=== PATIENT | male | born 1935 | race Caucasian/White ===

== ENCOUNTER 2020-01-19 08:25 | Inpatient (IN) | payer OTHER ==
[2020-01-19] MEDS ORDERED: ALBUTEROL SO4 2.5/IPRATROPIUM 0.5 INH SOL 3 ML VIAL.NEB. NEB ONE ×3 (08:26→13:51)
[2020-01-19] MEDS ORDERED: methylPREDNISolone NA SUCC 125 MG/2 ML VIAL IVPUSH ONE (08:27)
[2020-01-19] MEDS ORDERED: FUROSEMIDE 40 MG/4 ML INJECTABLE VIAL IVPUSH ONE (08:27)
[2020-01-19 09:06] LABS: BASO % 0.3 % (0-2.0); EOS % 0.3 % (0-4.5); HEMATOCRIT 33.1 % (35.4-49); HEMOGLOBIN 10.8 GM/dL (11.7-16.9); LYMPH % 10.1 % (8-40); MCHC 32.5 g/dl (32.0-35.9); MEAN CELL VOLUME 98.4 fl (80-96); MEAN PLT VOLUME 9.5 fl (7.5-11.1); MONO % 30.2 % (3.8-10.2); NEUT % 59.1 % (42.8-82.8); PLATELET COUNT 187 K/MM3 (134-434); RBC 3.37 M/mm3 (4.00-5.60); RDW 15.2 % (11.9-15.9); WHITE BLOOD COUNT 7.9 K/mm3 (4.0-10.0)
[2020-01-19 09:34] LABS: ALBUMIN 3.2 g/dl (3.4-5.0); BILIRUBIN,TOTAL 0.5 mg/dL (0.2-1); BLOOD UREA NITROGEN 27.8 mg/dL (7-18); CALCIUM 8.9 mg/dL (8.5-10.1); CREATININE 1.5 mg/dL (0.55-1.3); N-TERMINAL BNP 4168.7 pg/ml (5-450); POTASSIUM 3.9 mmol/L (3.5-5.1); TOT PROT 6.5 g/dl (6.4-8.2)
[2020-01-19 09:40] LABS: INR 1.49 (0.83-1.09); PROTHROMBIN TIME (PATIENT) 17.7 SEC (9.7-13.0)
[2020-01-19] MEDS ORDERED: ALBUTEROL SO4 0.083% IH SOL 2.5 MG/3 ML VIAL.NEB. NEB ONE ×2 (09:45→09:46)
[2020-01-19] MEDS ORDERED: DIGOXIN 0.5 MG/2 ML AMPUL IVPUSH ONE ×2 (09:46→17:05)
[2020-01-19] MEDS ORDERED: DIGOXIN 0.5 MG/2 ML AMPUL ONE ×2 (09:49→18:10)
--- NOTE | 2020-01-19 09:57 | PDOC ---
Documentation entered by Dagmar Salgado SCRIBE, acting as scribe for Dagoberto Edmond MD. Dagoberto Edmond MD: This documentation has been prepared by the Damian oliveros Adrianna, SCRIBE, under my direction and personally reviewed by me in its entirety. I confirm that the documentation accurately reflects all work, treatment, procedures, and medical decision making performed by me. History of Present Illness - General Stated Complaint: SOB - History of Present Illness Initial Comments: The patient is an 84 year old male, with a significant PMH of COPD, CHF, prior asbestos exposure, who presents to the ED for evaluation of shortness of breath for 3 days. Patient complains of progressively worsening shortness of breath. He endorses dyspnea on exertion, noting if he walks ~15 feet he hyperventilates and feels like he cannot catch his breath. Daughter at bedside notes the patient has had progressively worsening conversational dyspnea, stating he become short of breath after speaking 3-4 sentences. He endorses an associated cough productive of phlegm. Denies any chest pain at this time. Allergies: NKA, NKDA Social History: Former smoker (quit >40 years ago). No toxic habits PCP: Dr. Lackey Past History - Past Medical History Allergies/Adverse Reactions: Allergies Allergy/AdvReac Type Severity Reaction Status Date / Time No Known Allergies Allergy Verified 01/19/20 08:28 Home Medications: Ambulatory Orders Allopurinol 300 mg PO DAILY 01/19/20 Amlodipine Bes/Olmesartan Med [Amlodipine-Olmesartan 5-40 mg] 1 each PO Dabigatran Etexilate Mesylate [Pradaxa -] 75 mg PO BID 01/19/20 Glipizide [Glipizide Xl] 5 mg PO DAILY 01/19/20 Metoprolol Succinate [Toprol Xl] 100 mg PO DAILY 01/19/20 Montelukast Sodium [Singulair] 10 mg PO HS 01/19/20 Pravastatin Sodium [Pravachol (Nf)] 40 mg PO HS 01/19/20 Triamterene/Hydrochlorothiazid [Triamterene-Hctz 37.5-25 mg Cp] 1 each PO DAILY 01/19/20 Review of Systems - Review of Systems Comments:: CONSTITUTIONAL: No fever, no chills, no fatigue EYES: No visual changes ENT: No ear pain, no sore throat CARDIOVASCULAR: No chest pain, no palpitations RESPIRATORY: +Cough productive of phlegm. +SOB. +Dyspnea on exertion. + Conversational dyspnea. GI: No abdominal pain, no nausea, no vomiting, no constipation, no diarrhea GENITOURINARY: No dysuria, no frequency, no hematuria MUSKULOSKELETAL: No back pain, no joint pain, no myalgias SKIN: No rash NEURO: No headache *Physical Exam - Vital Signs Last Vital Signs Temp Pulse Resp BP Pulse Ox 97.3 F L 127 H 26 H 155/68 97 01/19/20 08:28 01/19/20 08:28 01/19/20 08:28 01/19/20 08:28 01/19/20 08:28 - Physical Exam CONSTITUTIONAL: Awake, alert, and oriented. Well-appearing; well-nourished; in mild respiratory distress. HEAD: Normocephalic; atraumatic EYES: PERRL; EOM intact ENMT: External appears normal; normal oropharynx NECK: Supple; non-tender; no cervical lymphadenopathy CARD: +Irregularly irregular. +Tachycardic. no murmurs, rubs, or gallops RESP: +Tachypneic. +Dyspneic. +Mild respiratory distress. +Diffuse rhonchi in all lung walsh. Normal chest excursion with respiration; ABD: Soft, non-distended; non-tender; no palpable organomegaly, no palpable hernias EXT: +2+ pitting edema of the bilateral lower extremities with anterior excoriations and mild erythema. Normal ROM in all four extremities; non-tender to palpation; distal pulses intact SKIN: Warm, dry, no rash NEURO: No focal neurological deficiencies. Heart Score/ECG Review - ECG Impressions Comment:: EKG performed at 8:26 on 01/19/2020 demonstrates rate of 108bpm, Atrial fibrillation with rapid ventricular response with premature ventricular or aberrantly conducted complexes. Anterolateral infarct, age undetermined. ED Treatment Course - LABORATORY CBC & Chemistry Diagram: 01/19/20 08:30 01/19/20 08:30 - ADDITIONAL ORDERS Additional order review: Laboratory Results 01/19/20 01/19/20 01/19/20 08:30 08:30 08:30 PT with INR 17.70 H INR 1.49 H Sodium 147 H Potassium 3.9 Chloride 112 H Carbon Dioxide 29 Anion Gap 6 L BUN 27.8 H Creatinine 1.5 H Est GFR (CKD-EPI)AfAm 48.85 Est GFR (CKD-EPI)NonAf 42.14 Random Glucose 190 H Calcium 8.9 Total Bilirubin 0.5 AST 17 ALT 22 Alkaline Phosphatase 73 Creatine Kinase 73 Troponin I 0.02 B-Natriuretic Peptide 4168.7 H Total Protein 6.5 Albumin 3.2 L Digoxin < 0.3 L 01/19/20 08:30 RBC 3.37 L MCV 98.4 H MCHC 32.5 RDW 15.2 MPV 9.5 Neutrophils % 59.1 Lymphocytes % 10.1 Monocytes % 30.2 H Eosinophils % 0.3 Basophils % 0.3 - RADIOLOGY Radiology Studies Ordered: Category Date Time Status CHEST X-RAY PORTABLE* [RAD] Stat Radiology 01/19/20 08:27 Taken Radiograph Interpretation: EXAM#: TYPE/EXAM: RESULT: [id number] RAD/CHEST X-RAY PORTABLE* Shortness of breath. Impression. Left lung base obscured by the soft tissues of the chest cardiac silhouette versus left pleural effusion, compressive atelectasis. Widened superior mediastinum, trachea narrowing, clinically correlate for adenopathy, enlarged thyroid gland. No evidence of vascular congestive changes. Reported By: Rosales Malave MD 01/19/20 10:02 EXAM#: TYPE/EXAM: RESULT: [id number] CT/CHEST CT WITHOUT CONTRAST Shortness of breath IMPRESSION: Bibasal consolidation/pneumonia with [id number] bilateral pleural effusion. There are also mild atelectatic changes versus infiltrates in lingular segment of the left upper lobe and in the right middle lobe. Follow-up is needed. Mild cardiomegaly with dense calcification of the coronary arteries. 1.3 cm soft tissue peritoneal based nodular density seen along the right posterior-lateral abdominal wall/and right flank, of uncertain clinical significance or etiology. Correlate clinically for further evaluation. Significantly enlarged thyroid gland, in particular the left thyroid lobe with retrosternal extension displacing the trachea towards the right with significant narrowing at the thoracic inlet. There are also multiple hypodensities with small calcific densities, in particular in the left thyroid lobe with the largest measuring 3.7 cm suggestive of nodules. Reported By: Lara Carpio MD 01/19/20 13:06 - Medications Given in the ED: ED Medications Discontinued Medications Generic Name Dose Route Start Last Admin Trade Name Chris PRN Reason Stop Dose Admin Albuterol Sulfate 1 amp 01/19/20 09:46 01/19/20 09:55 Ventolin 0.083% Nebulizer Soln - NEB 01/19/20 09:47 1 amp ONCE ONE Administration Albuterol/Ipratropium 3 amp 01/19/20 08:26 01/19/20 08:45 Duoneb - NEB 01/19/20 08:27 3 amp ONCE ONE Administration Digoxin 0.5 mg 01/19/20 09:46 01/19/20 09:55 Lanoxin Injection - IVPUSH 01/19/20 09:47 0.5 mg ONCE ONE Administration Furosemide 40 mg 01/19/20 08:27 01/19/20 08:45 Lasix Injection - IVPUSH 01/19/20 08:28 40 mg ONCE ONE Administration Methylprednisolone Sodium Succinate 125 mg 01/19/20 08:27 01/19/20 08:45 Solu-Medrol - IVPUSH 01/19/20 08:28 125 mg ONCE ONE Administration Medical Decision Making - Medical Decision Making 01/19/20 09:56 Patient is an 84-year-old male with multiple comorbidities who presents to the ER with worsening shortness of breath, cough productive of white sputum, significant lower extremity edema and hypoxemia. Differential diagnosis includes COPD versus CHF exacerbation versus combination of both versus viral infection versus asbestosis. Will administer Combivent therapy, parenteral steroids, will obtain chest x-ray. Will also administer IV Lasix. EKG reveals A. fib with RVR without evidence of underlying ischemia. Will obtain CBC/CMP/ cardiac profile/BNP. Will reassess. Likely admission. 01/19/20 14:24 Patient reassessed. Patient is mildly improved clinically. oxygen saturation is noted to be 94 to 96% on 4 L via nasal cannula. Patient's respiratory rate varies from 18-24. Heart rate varies from 1 10-[address] of chest reveals bilateral pleural effusions, bilateral infiltrates, enlarged thyroid and a pulmonary nodule. Blood cultures obtained and IV antibiotics administered for community-acquired pneumonia. Patient is noted to be influenza negative. We will continue with albuterol/Atrovent nebulizer treatments. Will admit to telemetry for further evaluation and treatment. Discharge - Discharge Information Problems reviewed: Yes Clinical Impression/Diagnosis: Pleural effusion, Acute exacerbation of chronic obstructive pulmonary disease ( COPD) Pneumonia Qualifiers: Pneumonia type: due to unspecified organism Laterality: bilateral Lung location : unspecified part of lung Qualified Code(s): J18.9 - Pneumonia, unspecified organism Acute CHF Qualifiers: Heart failure type: unspecified Qualified Code(s): I50.9 - Heart failure, unspecified Condition: Fair - Admission Yes - Follow up/Referral Referrals: Will Lackey MD [Primary Care Provider] - - Patient Discharge Instructions - Post Discharge Activity
[2020-01-19 10:32] LABS: ANISOCYTOSIS 0; MACROCYTOSIS 0; PLATELET ESTIMATE NORMAL
--- NOTE | 2020-01-19 10:50 | EKG ---
Test Reason : Blood Pressure : / mmHG Vent. Rate : 108 BPM Atrial Rate : 110 BPM P-R Int : 000 ms QRS Dur : 092 ms QT Int : 358 ms P-R-T Axes : 000 009 106 degrees QTc Int : 479 ms ATRIAL FIBRILLATION WITH RAPID VENTRICULAR RESPONSE WITH PREMATURE VENTRICULAR OR ABERRANTLY CONDUCTED COMPLEXES ANTEROLATERAL INFARCT , AGE UNDETERMINED ABNORMAL ECG WHEN COMPARED WITH ECG OF 19-JAN-2006 09:18, SIGNIFICANT CHANGES HAVE OCCURRED Confirmed by Jared Anderson ([id number]) on 01/19/2020 10:50:12 AM Referred By: Confirmed By:Jared Anderson
[2020-01-19 11:20] LABS: ARTERIAL BLD GAS O2 SATURATION 94.1 % (95-98); ARTERIAL BLOOD GAS BASE EXCESS 2.6 meq/l (-2-2); ARTERIAL BLOOD GAS PCO2 36.6 mmHg (35-45); ARTERIAL BLOOD GAS pH 7.46 (7.35-7.45)
[2020-01-19 11:23] LABS: ARTERIAL BLOOD GAS PO2 83.8 mmHg (80-100)
[2020-01-19 11:24] LABS: ALLENS TEST POSITIVE; CARBOXYHEMOGLOBIN < 0.5 % (0-2)
[2020-01-19] MEDS ORDERED: AZITHROMYCIN IVPB 500 MG in DEXTROSE 5%-WATER - 250 ML IVPB ONE (13:15)
[2020-01-19] MEDS ORDERED: CEFTRIAXONE 1,000 MG in DEXTROSE 5%-WATER - 50 ML IVPB ONE (13:15)
[2020-01-19] MEDS ORDERED: CEFTRIAXONE 1 GM/50 ML BAG ONE (13:25)
[2020-01-19] MEDS ORDERED: AZITHROMYCIN IVPB 500 MG/250 ML BAG IVPB ONE (14:56)
--- NOTE | 2020-01-19 17:11 | ECHO ---
Name: NEVAEH HOLMAN Exam:Adult Echocardiogram Study Date: 01/19/2020 03:37 PM Age: 84 yrs Reason For Study: Evaluate EF Height: 66 in Weight: 200 lb BSA: 2.0 m2 MMode/2D Measurements & Calculations IVSd: 1.1 cm Ao root diam: 3.3 cm LVIDd: 5.5 cm LA dimension: 4.7 cm LVIDs: 4.0 cm ACS: 1.8 cm LVPWd: 1.0 cm EDV(Teich): 145.7 ml LVOT diam: 2.0 cm ESV(Teich): 70.3 ml LVLd ap4: 7.7 cm SV(MOD-sp4): 55.0 ml EDV(MOD-sp4): 111.0 ml LVLs ap4: 6.6 cm ESV(MOD-sp4): 56.0 ml LAV (MOD-bp): 107.0 ml TAPSE: 1.9 cm RV S Miguelito: 14.6 cm/sec Doppler Measurements & Calculations MVA(VTI): 1.8 cm2 MV E max miguelito: 132.0 cm/sec MV V2 max: 139.0 cm/sec MV dec time: 0.23 sec MV max P.7 mmHg MV V2 mean: 75.2 cm/sec MV mean P.8 mmHg MV V2 VTI: 34.4 cm MV P1/2t max miguelito: 133.3 cm/sec Ao V2 max: 157.0 cm/sec MV P1/2t: 65.3 msec Ao max P.9 mmHg Ao V2 mean: 109.0 cm/sec MVA(P1/2t): 3.4 cm2 Ao mean P.3 mmHg MV dec slope: 598.0 cm/sec2 Ao V2 VTI: 25.3 cm DENIS(I,D): 2.5 cm2 DENIS(V,D): 2.1 cm2 LV V1 max P.5 mmHg MR max miguelito: 540.8 cm/sec LV V1 mean P.4 mmHg MR max P.0 mmHg LV V1 max: 105.5 cm/sec LV V1 mean: 72.3 cm/sec LV V1 VTI: 20.6 cm SV(LVOT): 63.0 ml TR max miguelito: 293.3 cm/sec TR max P.8 mmHg PA V2 max: 103.2 cm/sec Med Peak E' Miguelito: 10.1 cm/sec PA max P.3 mmHg Med E/e': 13.0 Lat Peak E' Miguelito: 14.6 cm/sec Lat E/e': 9.0 Pulm Sys Miguelito: 81.0 cm/sec Pulm Ellis Miguelito: 46.3 cm/sec Pulm S/D: 1.7 Tech Comments TDS due to body habitus. Left Ventricle The left ventricular size, thickness and function are normal. Ejection Fraction = 55-60%. The transmi tral spectral Doppler flow pattern is suggestive of impaired LV relaxation. Right Ventricle The right ventricle is normal in size and function. Atria The left atrium is moderately dilated. The right atrium is mildly dilated. Mitral Valve There is moderate to severe mitral annular calcification. Calcified mitral apparatus. There is mild m itral regurgitation. Tricuspid Valve The tricuspid valve is not well visualized. No tricuspid regurgitation. There was insufficient TR det ected to calculate RV systolic pressure. Aortic Valve There is moderate to severe aortic sclerosis.;. No hemodynamically significant valvular aortic stenos is. Trace to mild aortic regurgitation. Pulmonic Valve The pulmonic valve is not well visualized. Great Vessels The aortic root is not well visualized. Pericardium/Pleura There is no pericardial effusion. Interpretation Summary The left ventricular size, thickness and function are normal. Ejection Fraction = 55-60%. The right ventricle is normal in size and function. The left atrium is moderately dilated. The right atrium is mildly dilated. There is moderate to severe aortic sclerosis. No hemodynamically significant valvular aortic stenosis. Trace to mild aortic regurgitation. There is moderate to severe mitral annular calcification. Calcified mitral apparatus. There is mild m itral regurgitation. MD Lizett Soni 01/19/2020 05:10 PM
[2020-01-19] MEDS: INSULIN SLIDING SCALE (NOVOLOG) 1 VIAL SQ SCH (18:05)
[2020-01-19] MEDS: MONTELUKAST NA 10 MG TABLET PO SCH (22:47)
[2020-01-19] MEDS: ATORVASTATIN CA 10 MG TABLET (FP) PO SCH (22:47)
[2020-01-19] MEDS: DABIGATRAN ETEXILATE MESYLATE 75 MG CAPSULE PO SCH (22:54)
[2020-01-20 07:40] LABS: BASO % 0.1 % (0-2.0); HEMATOCRIT 31.9 % (35.4-49); HEMOGLOBIN 10.4 GM/dL (11.7-16.9); LYMPH % 6.4 % (8-40); MCHC 32.7 g/dl (32.0-35.9); MEAN CELL VOLUME 97.8 fl (80-96); MEAN PLT VOLUME 9.5 fl (7.5-11.1); MONO % 6.8 % (3.8-10.2); NEUT % 86.7 % (42.8-82.8); PLATELET COUNT 175 K/MM3 (134-434); RBC 3.26 M/mm3 (4.00-5.60); RDW 15.3 % (11.9-15.9); WHITE BLOOD COUNT 7.8 K/mm3 (4.0-10.0)
[2020-01-20 07:50] LABS: ALBUMIN 3.3 g/dl (3.4-5.0); BILIRUBIN,TOTAL 0.4 mg/dL (0.2-1); BLOOD UREA NITROGEN 39.5 mg/dL (7-18); CALCIUM 8.6 mg/dL (8.5-10.1); CREATININE 1.6 mg/dL (0.55-1.3); POTASSIUM 4.4 mmol/L (3.5-5.1); TOT PROT 6.4 g/dl (6.4-8.2)
[2020-01-20] MEDS ORDERED: CEFTRIAXONE 1 GM in DEXTROSE 5%-WATER - 50 ML IVPB SCH ×2 (08:00→08:47)
--- NOTE | 2020-01-20 10:30 | HP ---
Admitting History and Physical - Primary Care Physician PCP: Will Lackey - Admission Chief Complaint: cough,sob History of Present Illness: - History of Present Illness Initial Comments: The patient is an 84 year old male, with a significant PMH of COPD, CHF, prior asbestos exposure, who presents to the ED for evaluation of shortness of breath for 3 days. Patient complains of progressively worsening shortness of breath. He endorses dyspnea on exertion, noting if he walks ~15 feet he hyperventilates and feels like he cannot catch his breath. Daughter at bedside notes the patient has had progressively worsening conversational dyspnea, stating he become short of breath after speaking 3-4 sentences. He endorses an associated cough productive of phlegm. Denies any chest pain at this time. Allergies: NKA, NKDA Social History: Former smoker (quit >40 years ago). No toxic habits PCP: Dr. Lackey Pt examined by me in Telemetry Does not use Oxygen at home Has been feeling progressive SOB with non productive cough for about a month now and had seen Dr Lackey early in Dec -- he gave him antibiotics for a week-- felt slightly better. He had flew to [place], [place] 2 weeks ago and came back Jan 09. He has recurrence of symptoms prior to leaving to [place]-- did not seek medical attention there- when symptoms of SOB on exertion with worsening cough occurred he came to hospital here. Denies sick contacts, denies fever or chills no orthopnea or PND no chest pain History Source: Patient Limitations to Obtaining History: No Limitations - Past Medical History Cardiovascular: Yes: AFIB, CHF Pulmonary: Yes: COPD, Other (asbestos exposure) - Advance Directives Advance Directives: Yes: DNR - Smoking History Smoking history: Former smoker Have you smoked in the past 12 months: No If you are a former smoker, when did you quit?: 42 YRS AGO - Alcohol/Substance Use Hx Alcohol Use: No Home Medications - Allergies Allergies/Adverse Reactions: Allergies Allergy/AdvReac Type Severity Reaction Status Date / Time No Known Allergies Allergy Verified 01/19/20 08:28 - Home Medications Home Medications: Ambulatory Orders Allopurinol 300 mg PO DAILY 01/19/20 Amlodipine Bes/Olmesartan Med [Amlodipine-Olmesartan 5-40 mg] 1 each PO 01/19/20 Dabigatran Etexilate Mesylate [Pradaxa -] 75 mg PO BID 01/19/20 Glipizide [Glipizide Xl] 5 mg PO DAILY 01/19/20 Metoprolol Succinate [Toprol Xl] 100 mg PO DAILY 01/19/20 Montelukast Sodium [Singulair] 10 mg PO HS 01/19/20 Pravastatin Sodium [Pravachol (Nf)] 40 mg PO HS 01/19/20 Triamterene/Hydrochlorothiazid [Triamterene-Hctz 37.5-25 mg Cp] 1 each PO DAILY 01/19/20 Review of Systems - Review of Systems Constitutional: denies: Chills, Fever, Weakness Respiratory: reports: Cough, Exercise Intolerance, SOB, SOB on Exertion Physical Examination Vital Signs: Vital Signs Temperature 97.8 F 01/20/20 09:00 Pulse Rate 101 H 01/20/20 09:00 Respiratory Rate 20 01/20/20 09:00 Blood Pressure 121/66 01/20/20 09:00 O2 Sat by Pulse Oximetry (%) 96 01/20/20 09:00 Labs: CBC, BMP 01/20/20 06:00 01/20/20 06:00 Imaging - Results Chest X-ray: Report Reviewed (Radiograph Interpretation: EXAM#: TYPE/EXAM: RESULT: [id number] RAD/CHEST X-RAY PORTABLE* Shortness of breath. Impression. Left lung base obscured by the soft tissues of the chest cardiac silhouette v ersus left pleural effusion, compressive atelectasis. Widened superior mediastinum, trachea narrowing, clinically correlate for adenopathy, enlarged thyroid gland. No evidence of vascular congestive changes. Reported By: Rosales Malave MD 01/19/20 10:02), Image Reviewed Cat Scan: Report Reviewed ( EXAM#: TYPE/EXAM: RESULT: [id number] CT/CHEST CT WITHOUT CONTRAST Shortness of breath IMPRESSION: Bibasal consolidation/pneumonia with hyzkp-hy-hcdehefi bilateral pleural effusion. There are also mild atelectatic changes versus infiltrates in lingular segment of the left upper lobe and in the right middle lobe. Follow-up is needed. Mild cardiomegaly with dense calcification of the coronary arteries. 1.3 cm soft tissue peritoneal based nodular density seen along the right posterior-lateral abdominal wall/and right flank, of uncertain clinical significance or etiology. Correlate clinically for further evaluation. Significantly enlarged thyroid gland, in particular the left thyroid lobe with retrosternal extension displacing the trachea towards the right with significant narrowing at the thoracic inlet. There are also multiple hypodensities with small calcific dens ities, in particular in the left thyroid lobe with the largest measuring 3.7 cm suggestive of nodules. Reported By: Lara Carpio MD 01/19/20 13:06) EKG: Image Reviewed (Afib RVR) Problem List - Problems (1) Rapid atrial fibrillation Code(s): I48.91 - UNSPECIFIED ATRIAL FIBRILLATION (2) Acute CHF Code(s): I50.9 - HEART FAILURE, UNSPECIFIED Qualifiers: Heart failure type: unspecified Qualified Code(s): I50.9 - Heart failure, unspecified (3) Acute exacerbation of chronic obstructive pulmonary disease (COPD) Code(s): J44.1 - CHRONIC OBSTRUCTIVE PULMONARY DISEASE W (ACUTE) EXACERBATION (4) Pleural effusion Code(s): J90 - PLEURAL EFFUSION, NOT ELSEWHERE CLASSIFIED (5) Pneumonia Code(s): J18.9 - PNEUMONIA, UNSPECIFIED ORGANISM Qualifiers: Pneumonia type: due to unspecified organism Laterality: bilateral Lung location: unspecified part of lung Qualified Code(s): J18.9 - Pneumonia, unspecified organism (6) Acute kidney failure Code(s): N17.9 - ACUTE KIDNEY FAILURE, UNSPECIFIED Assessment/Plan PLAN COPD exacerbation Pneumonia -- check urine antigens -- iv antibiotics -- will give one dose of Zosyn -- Influenza screen negative -- CT chest noted --ID eval -- nebs, O2 CHF decompensation -- diastolic -- Echo reviewed -- Cardiology eval noted --on iv lasix -- monitor daily weight and I and O -- monitor renal function Rapid Afib -- on Pradaxa -- rate is controlled now --was given iv digoxin in ER -- will continue with Toprol for now as rates better controlled
[2020-01-20] MEDS ORDERED: DEXTROSE 5%-WATER - 50 ML IVPB ONE (10:55)
[2020-01-20] MEDS ORDERED: cefTRIAXone SODIUM 1 GM VIAL ONE (10:55)
[2020-01-20] MEDS ORDERED: PT OWN MED DRAWER 7, Y5N ONE ×2 (11:01→21:22)
[2020-01-20] MEDS ORDERED: DEXTROSE 5%-WATER 100 ML IVPB ONE ×2 (11:08→17:29)
[2020-01-20] MEDS ORDERED: PIPERACILLIN/TAZOBACTAM 4.5 GM VIAL IVPB ONE (11:08)
--- NOTE | 2020-01-20 11:12 | CON.CARD ---
Cardiology Consult (text) - Consultation Consultation Note: cc: sob hpi: 84 m hx copd, htn, hld, afib, dchf here with sob. Past few weeks with [place] and cough, worse past few days so came to er. No cp palps dizzy loc pnd le edema. Mild orthopnea present. Found to have bl pna. pmh: per hpi psh: per hpi social: ex tob fam: no premature cad, scd ros: per hpi, all others nl meds: Home Medications Medication Instructions Recorded Allopurinol 300 mg PO DAILY 01/19/20 Amlodipine Bes/Olmesartan Med 1 each PO 01/19/20 [Amlodipine-Olmesartan 5-40 mg] Dabigatran Etexilate Mesylate 75 mg PO BID 01/19/20 [Pradaxa -] Glipizide [Glipizide Xl] 5 mg PO DAILY 01/19/20 Metoprolol Succinate [Toprol Xl] 100 mg PO DAILY 01/19/20 Montelukast Sodium [Singulair] 10 mg PO HS 01/19/20 Pravastatin Sodium [Pravachol (Nf)] 40 mg PO HS 01/19/20 Triamterene/Hydrochlorothiazid 1 each PO DAILY 01/19/20 [Triamterene-Hctz 37.5-25 mg Cp] Vital Signs Period Temp Pulse Resp BP Sys/Ellis Pulse Ox Last 24 Hr 97.6 F-97.8 F 89-133 18-24 121-164/65-87 2-97 nad no jvd irreg s1s2 no mrg bl wheeze, dec bs bases, nl eff aao3 no le e/c/c abd nt nd pos bs no jaundice diaphoresis pos dp pt no carotid bruits Laboratory Last Values WBC 7.8 K/mm3 (4.0-10.0) 01/20/20 06:00 RBC 3.26 M/mm3 (4.00-5.60) L 01/20/20 06:00 Hgb 10.4 GM/dL (11.7-16.9) L 01/20/20 06:00 Hct 31.9 % (35.4-49) L 01/20/20 06:00 MCV 97.8 fl (80-96) H 01/20/20 06:00 MCH 32.0 pg (25.7-33.7) 01/20/20 06:00 MCHC 32.7 g/dl (32.0-35.9) 01/20/20 06:00 RDW 15.3 % (11.9-15.9) 01/20/20 06:00 Plt Count 175 K/MM3 (134-434) 01/20/20 06:00 MPV 9.5 fl (7.5-11.1) 01/20/20 06:00 Absolute Neuts (auto) 6.8 K/mm3 (1.5-8.0) 01/20/20 06:00 Neutrophils % 86.7 % (42.8-82.8) H D 01/20/20 06:00 Neutrophils % (Manual) 64.6 % (42.8-82.8) 01/19/20 08:30 Band Neutrophils % 0.0 % 01/19/20 08:30 Lymphocytes % 6.4 % (8-40) L D 01/20/20 06:00 Lymphocytes % (Manual) 6.1 % (8-40) L 01/19/20 08:30 Monocytes % 6.8 % (3.8-10.2) 01/20/20 06:00 Monocytes % (Manual) 26 % (3.8-10.2) H 01/19/20 08:30 Eosinophils % 0.0 % (0-4.5) D 01/20/20 06:00 Eosinophils % (Manual) 0.0 % (0-4.5) 01/19/20 08:30 Basophils % 0.1 % (0-2.0) 01/20/20 06:00 Basophils % (Manual) 0.0 % (0-2.0) 01/19/20 08:30 Myelocytes % (Man) 0 % (0-2) 01/19/20 08:30 Promyelocytes % (Man) 0 % (0-2) 01/19/20 08:30 Blast Cells % (Manual) 0 % (0-0) 01/19/20 08:30 Nucleated RBC % 0 % (0-0) 01/20/20 06:00 Metamyelocytes 0 % (0-2) 01/19/20 08:30 Hypochromia 0 01/19/20 08:30 Platelet Estimate Normal 01/19/20 08:30 Polychromasia 0 01/19/20 08:30 Poikilocytosis 0 01/19/20 08:30 Anisocytosis 0 01/19/20 08:30 Microcytosis 0 01/19/20 08:30 Macrocytosis 0 01/19/20 08:30 PT with INR 17.70 SEC (9.7-13.0) H 01/19/20 08:30 INR 1.49 (0.83-1.09) H 01/19/20 08:30 Anticoagulation Therapy No Result Required. 01/19/20 11:10 Puncture Site Left radial 01/19/20 11:10 ABG pH 7.46 (7.35-7.45) H 01/19/20 11:10 ABG pCO2 at Pt Temp 36.6 mmHg (35-45) 01/19/20 11:10 ABG pO2 at Pt Temp 83.8 mmHg (80-100) 01/19/20 11:10 ABG HCO3 25.9 mmol/L (22-27) 01/19/20 11:10 ABG O2 Sat (Measured) 94.1 % (95-98) L 01/19/20 11:10 ABG O2 Content No Result Required. 01/19/20 11:10 ABG Base Excess 2.6 meq/l (-2-2) H 01/19/20 11:10 Giuliano Test Positive 01/19/20 11:10 Carboxyhemoglobin < 0.5 % (0-2) 01/19/20 11:10 Methemoglobin < 1.0 % (0-2) 01/19/20 11:10 O2 Delivery Device No Result Required. 01/19/20 11:10 Oxygen Flow Rate Yes 01/19/20 11:10 Vent Mode No Result Required. 01/19/20 11:10 Vent Rate No Result Required. 01/19/20 11:10 Mechanical Rate No Result Required. 01/19/20 11:10 Pressure Support Vent No Result Required. 01/19/20 11:10 Sodium 145 mmol/L (136-145) 01/20/20 06:00 Potassium 4.4 mmol/L (3.5-5.1) 01/20/20 06:00 Chloride 110 mmol/L (98-107) H 01/20/20 06:00 Carbon Dioxide 31 mmol/L (21-32) 01/20/20 06:00 Anion Gap 4 MMOL/L (8-16) L 01/20/20 06:00 BUN 39.5 mg/dL (7-18) H 01/20/20 06:00 Creatinine 1.6 mg/dL (0.55-1.3) H 01/20/20 06:00 Est GFR (CKD-EPI)AfAm 45.18 01/20/20 06:00 Est GFR (CKD-EPI)NonAf 38.98 01/20/20 06:00 POC Glucometer 119 UNITS (80-120) 01/20/20 05:57 Random Glucose 109 mg/dL (74-106) H 01/20/20 06:00 Calcium 8.6 mg/dL (8.5-10.1) 01/20/20 06:00 Total Bilirubin 0.4 mg/dL (0.2-1) 01/20/20 06:00 AST 16 U/L (15-37) 01/20/20 06:00 ALT 21 U/L (13-61) 01/20/20 06:00 Alkaline Phosphatase 70 U/L (45-117) 01/20/20 06:00 Creatine Kinase 84 U/L (26-308) 01/20/20 06:00 Troponin I 0.02 ng/ml (0.00-0.05) 01/20/20 06:00 B-Natriuretic Peptide 4168.7 pg/ml (5-450) H 01/19/20 08:30 Total Protein 6.4 g/dl (6.4-8.2) 01/20/20 06:00 Albumin 3.3 g/dl (3.4-5.0) L 01/20/20 06:00 TSH 0.04 uIU/ml (0.358-3.74) L 01/20/20 06:00 Digoxin < 0.3 ng/ml (0.8-2.0) L 01/19/20 08:30 Influenza A (Rapid) Negative (Negative) 01/19/20 09:50 Influenza B (Rapid) Negative (Negative) 01/19/20 09:50 echo 01/2020: nl lv/rv, ivonne, mild mr mibi 09/2017: no ischemia ecg: afib, 108, nl qtc, no ischemic changes ct chest: bibasilar pna and bl effs tele: afib, 90s a/p: 84 m hx copd, htn, hld, afib, dchf here with sob. sob, pna, acute/chronic diastolic chf: -cont abx for pna -has mild pleural effs, likely related to pna, agree with iv lasix for now, monitor daily chem7 -no signs acs htn: -cont home meds hld: -cont statin afib: -cont ac -cont toprol for rate control. mild rvr at times likely due to pna, monitor on tele for now
[2020-01-20] MEDS ORDERED: PIPERACILLIN/TAZOB 4.5 GM 4.5 GM in DEXTROSE 5%-WATER 100 ML IVPB ONE (11:15)
[2020-01-20] MEDS: FUROSEMIDE 40 MG/4 ML INJECTABLE VIAL IVPUSH SCH (11:18)
[2020-01-20] MEDS: DABIGATRAN ETEXILATE MESYLATE 75 MG CAPSULE PO SCH ×2 (11:18→21:25)
[2020-01-20] MEDS: INSULIN SLIDING SCALE (NOVOLOG) 1 VIAL SQ SCH ×2 (11:18→17:11)
[2020-01-20] MEDS: ALLOPURINOL 300 MG TABLET (FP) PO SCH (11:18)
[2020-01-20] MEDS: AZITHROMYCIN IVPB 500 MG/250 ML BAG IVPB SCH (12:42)
--- NOTE | 2020-01-20 17:13 | PN ---
Progress Note (short form) - Note Progress Note: ID CONSULT DICTATED COMMUNITY ACQUIRED V. ATYPICAL PNEUMONIA EXACERBATION COPD AWAIT C/S EMPIRIC CEFTRIAXONE/ ZITHROMAX
[2020-01-20] MEDS: CEFTRIAXONE 2 GM in DEXTROSE 5%-WATER 100 ML IVPB SCH (17:42)
[2020-01-20] MEDS: ALBUTEROL SO4 2.5/IPRATROPIUM 0.5 INH SOL 3 ML VIAL.NEB. NEB PRN ×2 (17:44→23:45)
[2020-01-20] MEDS: MONTELUKAST NA 10 MG TABLET PO SCH (21:25)
[2020-01-20] MEDS: ATORVASTATIN CA 10 MG TABLET (FP) PO SCH (21:25)
--- NOTE | 2020-01-21 00:24 | CONS ---
DATE OF CONSULTATION: DATE OF DICTATION: 01/20/2020 INFECTIOUS DISEASE CONSULTATION HISTORY OF PRESENT ILLNESS: The patient is an 84-year-old male, history of COPD, evaluated for pneumonia. He was admitted to the hospital on January 19, 2020, with worsening shortness of breath on exertion and cough productive of brownish sputum. A CAT scan of the chest was performed that showed bibasilar infiltrates and bilateral pleural effusions. He was empirically treated with Zithromax and ceftriaxone. The patient lives at home alone. He denies any ill contacts. No recent hospitalizations, no recent travel. He is a former smoker. He stopped 40 years ago. Prior to that, had smoked for approximately 20 years. He reports being up to date with respect to influenza and pneumococcal vaccine. Patient does not use oxygen at home. He denies any chest pains, fever, or chills. PAST MEDICAL HISTORY: Positive for COPD, congestive heart failure, atrial fibrillation. ALLERGIES: No known allergies. MEDICATION: Medications at the present time include Zithromax, ceftriaxone, albuterol, Pradaxa, Lipitor, digoxin, Toprol, Lasix, glipizide, Solu-Medrol. SOCIAL HISTORY: As per HPI. LABORATORY DATA: White count 7.8, hematocrit 31.9, platelets 175, creatinine 1.6. Flu swab negative. Cultures are pending. SYSTEMS REVIEW: Neurologic: No loss of consciousness, seizure activity, focal weakness. Cardiac: Negative for chest pain or palpitations. Respiratory: As per HPI. Gastrointestinal: Negative vomiting or diarrhea. Genitourinary: Negative for urinary tract infection. PHYSICAL EXAMINATION: General: On physical examination he is awake and alert. He is seated in bed. He is short of breath at rest on nasal cannula O2. Vital signs: Temperature 97.9, blood pressure 145/82, pulse 85 regular, respirations 22 per minute. HEENT: Sclerae anicteric. Cardiovascular: Heart sounds S1, S2. Lungs: Scattered rhonchi bilaterally and mild bilateral wheezing. Abdomen: Obese. Soft, nontender. Extremities: Positive for lower extremity edema. There is a hyperpigmented lesion present on the right pinna as well as a superficial ulceration present on the left buttock approximately 1 cm in diameter. Does not appear to be infected. IMPRESSION: 1. Community-acquired versus atypical right-sided pneumonia. 2. Acute exacerbation chronic obstructive pulmonary disease. 3. Congestive heart failure. 4. Azotemia. Await cultures, await sputum culture, urine legionella and pneumococcal antigens. Empiric antibiotic coverage with Zithromax and ceftriaxone. Inhaled bronchodilators, intravenous corticosteroids, diuretic therapy. Will follow. Thank you for the kind referral. KIP ZIMMERMAN M.D. [id number]
[2020-01-21] MEDS: ALBUTEROL SO4 2.5/IPRATROPIUM 0.5 INH SOL 3 ML VIAL.NEB. NEB PRN (06:06)
[2020-01-21] MEDS: INSULIN SLIDING SCALE (NOVOLOG) 1 VIAL SQ SCH ×3 (06:29→16:33)
[2020-01-21] MEDS: glipiZIDE-XL 5 MG TAB.ER.24 PO SCH (06:30)
[2020-01-21 08:29] LABS: BLOOD UREA NITROGEN 47.6 mg/dL (7-18); CALCIUM 8.4 mg/dL (8.5-10.1); CREATININE 1.6 mg/dL (0.55-1.3); POTASSIUM 4.2 mmol/L (3.5-5.1)
[2020-01-21] MEDS ORDERED: DEXTROSE 5%-WATER 100 ML IVPB ONE (09:29)
[2020-01-21] MEDS ORDERED: PT OWN MED DRAWER 7, Y5N ONE ×2 (09:29→21:32)
[2020-01-21] MEDS: CEFTRIAXONE 2 GM in DEXTROSE 5%-WATER 100 ML IVPB SCH (09:57)
[2020-01-21] MEDS: ALLOPURINOL 300 MG TABLET (FP) PO SCH (09:57)
[2020-01-21] MEDS: DABIGATRAN ETEXILATE MESYLATE 75 MG CAPSULE PO SCH ×2 (09:57→21:47)
[2020-01-21] MEDS: FUROSEMIDE 40 MG/4 ML INJECTABLE VIAL IVPUSH SCH (09:58)
--- NOTE | 2020-01-21 10:05 | PN ---
Progress Note, Physician Chief Complaint: no CP Stable cough No dizziness or palps History of Present Illness: pi: 84 m hx copd, htn, hld, afib, dchf here with sob. Past few weeks with [place] and cough, worse past few days so came to er. No cp palps dizzy loc pnd le edema. Mild orthopnea present. Found to have bl pna. TELE: AF, controlled, rare PVCs - Current Medication List Current Medications: Active Medications Albuterol/Ipratropium (Duoneb -) 1 amp NEB Q6H PRN PRN Reason: SHORTNESS OF BREATH Last Admin: 01/21/20 06:06 Dose: 1 amp Documented by: Allopurinol (Zyloprim -) 300 mg PO DAILY [facility] Last Admin: 01/21/20 09:57 Dose: 300 mg Documented by: Atorvastatin Calcium (Lipitor -) 10 mg PO HS [facility] Last Admin: 01/20/20 21:25 Dose: 10 mg Documented by: Dabigatran (Pradaxa -) 75 mg PO BID [facility] Last Admin: 01/21/20 09:57 Dose: 75 mg Documented by: Furosemide (Lasix Injection -) 40 mg IVPUSH DAILY [facility] Last Admin: 01/21/20 09:58 Dose: 40 mg Documented by: Glipizide (Glucotrol Xl -) 5 mg PO DAILY@0700 [facility] Last Admin: 01/21/20 06:30 Dose: Not Given Documented by: Azithromycin (Zithromax 500mg Ivpb (Pre-Docked)) 500 mg in 250 mls @ 250 mls/hr IVPB DAILY [facility] Last Admin: 01/20/20 12:42 Dose: 250 mls/hr Documented by: Ceftriaxone Sodium 2 gm/ (Dextrose) 100 mls @ 200 mls/hr IVPB DAILY [facility]; Protocol Last Admin: 01/21/20 09:57 Dose: 200 mls/hr Documented by: Insulin Aspart (Novolog Vial Sliding Scale -) 1 vial SQ TIDAC [facility]; Protocol Last Admin: 01/21/20 06:29 Dose: Not Given Documented by: Metoprolol Succinate (Toprol Xl -) 100 mg PO DAILY [facility] Last Admin: 01/21/20 09:57 Dose: 100 mg Documented by: Montelukast Sodium (Singulair -) 10 mg PO [facility] Last Admin: 01/20/20 21:25 Dose: 10 mg Documented by: - Objective Vital Signs: Vital Signs Temperature 97.4 F L 01/21/20 05:00 Pulse Rate 92 H 01/21/20 05:00 Respiratory Rate 20 01/21/20 05:00 Blood Pressure 141/70 01/21/20 05:00 O2 Sat by Pulse Oximetry (%) 96 01/20/20 21:00 Cardiovascular: Yes: Pulse Irregular Respiratory: Yes: Rhonchi, Other (decreased breath sounds bases) Gastrointestinal: Yes: Soft, Abdomen, Obese Edema: Yes Edema: LLE: 1+, RLE: 1+ Neurological: Yes: Alert, Oriented Labs: CBC, BMP 01/20/20 06:00 01/21/20 06:28 INR, PTT INR 1.49 (0.83-1.09) H 01/19/20 08:30 - ....Imaging EKG: Image Reviewed Assessment/Plan echo 01/2020: nl lv/rv, ivonne, mild mr mibi 09/2017: no ischemia ecg: afib, 108, nl qtc, no ischemic changes ct chest: bibasilar pna and bl effs tele: afib, 90s a/p: 84 m hx copd, htn, hld, afib, dchf here with sob. sob, pna, acute/chronic diastolic chf: -cont abx for pna -has mild pleural effs, likely related to pna, agree with iv lasix for now, monitor daily chem7 -no signs acs htn: -cont home meds hld: -cont statin afib: -cont ac, on Pradaxa -cont toprol for rate control.
--- NOTE | 2020-01-21 10:08 | PN ---
Progress Note, Physician History of Present Illness: pt seen/ examined chart is reviewed all consults noted/ appreciated Also d/w Dr. Hoffman today Pt feels slightly better still sob denies cp afebrile - Current Medication List Current Medications: Active Medications Albuterol/Ipratropium (Duoneb -) 1 amp NEB Q6H PRN PRN Reason: SHORTNESS OF BREATH Last Admin: 01/21/20 06:06 Dose: 1 amp Documented by: Allopurinol (Zyloprim -) 300 mg PO DAILY [facility] Last Admin: 01/21/20 09:57 Dose: 300 mg Documented by: Atorvastatin Calcium (Lipitor -) 10 mg PO HS [facility] Last Admin: 01/20/20 21:25 Dose: 10 mg Documented by: Dabigatran (Pradaxa -) 75 mg PO BID [facility] Last Admin: 01/21/20 09:57 Dose: 75 mg Documented by: Furosemide (Lasix Injection -) 40 mg IVPUSH DAILY [facility] Last Admin: 01/21/20 09:58 Dose: 40 mg Documented by: Glipizide (Glucotrol Xl -) 5 mg PO DAILY@0700 [facility] Last Admin: 01/21/20 06:30 Dose: Not Given Documented by: Azithromycin (Zithromax 500mg Ivpb (Pre-Docked)) 500 mg in 250 mls @ 250 mls/hr IVPB DAILY [facility] Last Admin: 01/20/20 12:42 Dose: 250 mls/hr Documented by: Ceftriaxone Sodium 2 gm/ (Dextrose) 100 mls @ 200 mls/hr IVPB DAILY [facility]; Protocol Last Admin: 01/21/20 09:57 Dose: 200 mls/hr Documented by: Insulin Aspart (Novolog Vial Sliding Scale -) 1 vial SQ TIDAC [facility]; Protocol Last Admin: 01/21/20 06:29 Dose: Not Given Documented by: Metoprolol Succinate (Toprol Xl -) 100 mg PO DAILY [facility] Last Admin: 01/21/20 09:57 Dose: 100 mg Documented by: Montelukast Sodium (Singulair -) 10 mg PO HS [facility] Last Admin: 01/20/20 21:25 Dose: 10 mg Documented by: - Objective Vital Signs: Vital Signs Temperature 97.4 F L 01/21/20 05:00 Pulse Rate 92 H 01/21/20 05:00 Respiratory Rate 20 01/21/20 05:00 Blood Pressure 141/70 01/21/20 05:00 O2 Sat by Pulse Oximetry (%) 96 01/20/20 21:00 Constitutional: Yes: No Distress Eyes: Yes: Conjunctiva Clear Neck: Yes: Supple Cardiovascular: Yes: Pulse Irregular. No: Regular Rate and Rhythm Respiratory: Yes: Diminished, Rhonchi Gastrointestinal: Yes: Soft, Abdomen, Obese Edema: LLE: 1+, RLE: 1+ Neurological: Yes: Alert Labs: CBC, BMP 01/20/20 06:00 01/21/20 06:28 INR, PTT INR 1.49 (0.83-1.09) H 01/19/20 08:30 Problem List - Problems (1) Acute CHF Code(s): I50.9 - HEART FAILURE, UNSPECIFIED Qualifiers: Heart failure type: unspecified Qualified Code(s): I50.9 - Heart failure, unspecified (2) Acute exacerbation of chronic obstructive pulmonary disease (COPD) Code(s): J44.1 - CHRONIC OBSTRUCTIVE PULMONARY DISEASE W (ACUTE) EXACERBATION (3) Pneumonia Code(s): J18.9 - PNEUMONIA, UNSPECIFIED ORGANISM Qualifiers: Pneumonia type: due to unspecified organism Laterality: bilateral Lung location: unspecified part of lung Qualified Code(s): J18.9 - Pneumonia, unspecified organism (4) Rapid atrial fibrillation Code(s): I48.91 - UNSPECIFIED ATRIAL FIBRILLATION (5) Acute kidney failure Code(s): N17.9 - ACUTE KIDNEY FAILURE, UNSPECIFIED Assessment/Plan -- iv antibiotics -- -- Influenza screen negative -- CT chest noted --ID eval noted -- nebs, O2 CHF decompensation -- diastolic -- Echo reviewed -- Cardiology eval noted --on iv lasix -- monitor daily weight and I and O -- monitor renal function Rapid Afib -- on Pradaxa -- rate is controlled Will follow
[2020-01-21] MEDS: ALBUTEROL SO4 2.5/IPRATROPIUM 0.5 INH SOL 3 ML VIAL.NEB. NEB SCH ×3 (11:38→21:30)
[2020-01-21] MEDS: AZITHROMYCIN IVPB 500 MG/250 ML BAG IVPB SCH (13:00)
--- NOTE | 2020-01-21 13:21 | PN ---
Progress Note, Physician History of Present Illness: AWAKE, ALERT SEATED IN BED REPORTS BREATHING IMPROVED LESS COUGH NO C/O CHEST PAIN NO FEVER/ CHILLS - Current Medication List Current Medications: Active Medications Albuterol/Ipratropium (Duoneb -) [address] [facility] Last Admin: 01/21/20 11:38 Dose: 1 amp Documented by: Allopurinol (Zyloprim -) [address] [facility] Last Admin: 01/21/20 09:57 Dose: 300 mg Documented by: Atorvastatin Calcium (Lipitor -) [address] [facility] Last Admin: 01/20/20 21:25 Dose: 10 mg Documented by: Dabigatran (Pradaxa -) [address] [facility] Last Admin: 01/21/20 09:57 Dose: 75 mg Documented by: Furosemide (Lasix Injection -) [address] [facility] Last Admin: 01/21/20 09:58 Dose: 40 mg Documented by: Glipizide (Glucotrol Xl -) 5 mg PO DAILY@0700 [facility] Last Admin: 01/21/20 06:30 Dose: Not Given Documented by: Azithromycin (Zithromax 500mg Ivpb (Pre-Docked)) 500 mg in 250 mls @ 250 mls/hr IVPB DAILY [facility] Last Admin: 01/20/20 12:42 Dose: 250 mls/hr Documented by: Ceftriaxone Sodium 2 gm/ (Dextrose) 100 mls @ 200 mls/hr IVPB DAILY [facility]; Pro tocol Last Admin: 01/21/20 09:57 Dose: 200 mls/hr Documented by: Insulin Aspart (Novolog Vial Sliding Scale -) [address] [facility]; Protocol Last Admin: 01/21/20 06:29 Dose: Not Given Documented by: Metoprolol Succinate (Toprol Xl -) [address] [facility] Last Admin: 01/21/20 09:57 Dose: 100 mg Documented by: Montelukast Sodium (Singulair -) [address] [facility] Last Admin: 01/20/20 21:25 Dose: 10 mg Documented by: - Objective Vital Signs: Vital Signs Temperature 98.1 F 01/21/20 10:00 Pulse Rate 96 H 01/21/20 10:00 Respiratory Rate 20 01/21/20 10:00 Blood Pressure 120/64 01/21/20 10:00 O2 Sat by Pulse Oximetry (%) 96 01/20/20 21:00 Constitutional: Yes: No Distress Eyes: Yes: Conjunctiva Clear Cardiovascular: Yes: Regular Rate and Rhythm, S1, S2 Respiratory: Yes: Rhonchi Gastrointestinal: Yes: Normal Bowel Sounds, Soft, Abdomen, Obese. No: Tenderness Edema: Yes Labs: CBC, BMP 01/20/20 06:00 01/21/20 06:28 INR, PTT INR 1.49 (0.83-1.09) H 01/19/20 08:30 Assessment/Plan [id number] ACQUIRED PNEUMONIA ACUTE EXACERBATION COPD CHF AWAIT C/S CONTINUE CEFTRIAXONE/ ZITHROMAX
[2020-01-21] MEDS: MONTELUKAST NA 10 MG TABLET PO SCH (21:47)
[2020-01-21] MEDS: ATORVASTATIN CA 10 MG TABLET (FP) PO SCH (21:47)
[2020-01-22] MEDS: INSULIN SLIDING SCALE (NOVOLOG) 1 VIAL SQ SCH ×3 (06:41→17:45)
[2020-01-22] MEDS: glipiZIDE-XL 5 MG TAB.ER.24 PO SCH (06:41)
[2020-01-22] MEDS: ALBUTEROL SO4 2.5/IPRATROPIUM 0.5 INH SOL 3 ML VIAL.NEB. NEB SCH ×4 (07:57→20:00)
[2020-01-22] MEDS ORDERED: DEXTROSE 5%-WATER 100 ML IVPB ONE (09:01)
[2020-01-22] MEDS: CEFTRIAXONE 2 GM in DEXTROSE 5%-WATER 100 ML IVPB SCH (09:54)
[2020-01-22] MEDS: AZITHROMYCIN IVPB 500 MG/250 ML BAG IVPB SCH (09:55)
[2020-01-22] MEDS: FUROSEMIDE 40 MG/4 ML INJECTABLE VIAL IVPUSH SCH (09:56)
[2020-01-22] MEDS: ALLOPURINOL 300 MG TABLET (FP) PO SCH (09:56)
[2020-01-22] MEDS ORDERED: PT OWN MED DRAWER 7, Y5N ONE (09:57)
[2020-01-22] MEDS: DABIGATRAN ETEXILATE MESYLATE 75 MG CAPSULE PO SCH ×2 (09:59→21:19)
--- NOTE | 2020-01-22 11:37 | PN ---
Progress Note (short form) - Note Progress Note: daughter at bedside Pt states he feels better still wheezing when walking to bathroom-- denies sob Vital Signs - 24 hr 01/21/20 01/21/20 01/21/20 14:00 17:00 21:00 Temperature 98 F 97.3 F L 98.3 F Pulse Rate 101 H 95 H 91 H Respiratory 20 20 20 Rate Blood Pressure 97/53 L 129/73 130/62 O2 Sat by Pulse 94 L Oximetry (%) 01/22/20 01/22/20 01:00 05:00 Temperature 97.5 F L 97.8 F Pulse Rate 98 H 94 H Respiratory 20 19 Rate Blood Pressure 116/69 138/77 O2 Sat by Pulse Oximetry (%) Current Medications Generic Name Dose Route Start Last Admin Trade Name Freq PRN Reason Stop Dose Admin Albuterol/Ipratropium 1 amp 01/21/20 12:00 01/22/20 11:31 Duoneb - NEB 1 amp RQID PEEWEE Administration Allopurinol 300 mg 01/20/20 10:00 01/22/20 09:56 Zyloprim - PO 300 mg DAILY PEEWEE Administration Atorvastatin Calcium 10 mg 01/19/20 22:00 01/21/20 21:47 Lipitor - PO 10 mg HS PEEWEE Administration Dabigatran 75 mg 01/19/20 22:00 01/22/20 09:59 Pradaxa - PO 75 mg BID PEEWEE Administration Furosemide 40 mg 01/20/20 10:00 01/22/20 09:56 Lasix Injection - IVPUSH 40 mg DAILY PEEWEE Administration Glipizide 5 mg 01/20/20 07:00 01/22/20 06:41 Glucotrol Xl - PO 5 mg DAILY@0700 PEEWEE Administration Azithromycin 500 mg in 250 mls @ 250 mls/hr 01/20/20 10:00 01/22/20 09:55 Zithromax 500mg Ivpb (Pre-Docked) IVPB 250 mls/hr DAILY [facility]EE Administration Ceftriaxone Sodium 2 gm/ 100 mls @ 200 mls/hr 01/20/20 17:15 01/22/20 09:54 Dextrose IVPB 200 mls/hr DAILY PEEWEE Administration Protocol Insulin Aspart 1 vial 01/19/20 16:30 01/22/20 06:41 Novolog Vial Sliding Scale - SQ Not Given TIDAC PEEWEE Protocol Metoprolol Succinate 100 mg 01/20/20 10:00 01/22/20 09:56 Toprol Xl - PO 100 mg DAILY PEEWEE Administration Montelukast Sodium 10 mg 01/19/20 22:00 01/21/20 21:47 Singulair - PO 10 mg HS PEEWEE Administration Laboratory Results - last 24 hr 01/21/20 01/21/20 01/22/20 12:43 16:19 06:34 POC Glucometer 133 132 165 Microbiology 01/20/20 21:30 Sputum - Expectorated Gram Stain - Final 01/20/20 21:30 Sputum - Expectorated Sputum Culture - Preliminary NORMAL RESPIRATORY HERNANDEZ 01/19/20 13:36 Blood - Peripheral Venous Blood Culture - Preliminary NO GROWTH OBTAINED AFTER 48 HOURS, INCUBATION TO CONTINUE FOR 3 DAYS. 01/19/20 13:36 Blood - Peripheral Venous Blood Culture - Preliminary NO GROWTH OBTAINED AFTER 48 HOURS, INCUBATION TO CONTINUE FOR 3 DAYS. 01/20/20 12:45 Urine For Antigen Detection Legionella Antigen - Final 01/20/20 12:45 Urine For Antigen Detection Streptococcus pneumoniae Antigen (M - Final S1 S2 Irregular Lungs ronchi decreased Abd-soft, obese, NT trace edema A/p Assessment/Plan Pneumonia -- iv antibiotics -- -- Influenza screen negative -- CT chest noted --ID eval noted -- nebs, O2 -- urine antigens negative -- sputum-- normal -- pulmonary eval ---> ?start steroids CHF decompensation -- diastolic -- Echo reviewed -- Cardiology eval noted --on iv lasix -- monitor daily weight and I and O -- monitor renal function Rapid Afib -- on Pradaxa -- rate is controlled Problem List - Problems (1) Rapid atrial fibrillation Code(s): I48.91 - UNSPECIFIED ATRIAL FIBRILLATION (2) Acute CHF Code(s): I50.9 - HEART FAILURE, UNSPECIFIED Qualifiers: Heart failure type: unspecified Qualified Code(s): I50.9 - Heart failure, unspecified (3) Acute exacerbation of chronic obstructive pulmonary disease (COPD) Code(s): J44.1 - CHRONIC OBSTRUCTIVE PULMONARY DISEASE W (ACUTE) EXACERBATION (4) Pleural effusion Code(s): J90 - PLEURAL EFFUSION, NOT ELSEWHERE CLASSIFIED (5) Pneumonia Code(s): J18.9 - PNEUMONIA, UNSPECIFIED ORGANISM Qualifiers: Pneumonia type: due to unspecified organism Laterality: bilateral Lung location: unspecified part of lung Qualified Code(s): J18.9 - Pneumonia, unspecified organism (6) Acute kidney failure Code(s): N17.9 - ACUTE KIDNEY FAILURE, UNSPECIFIED
[2020-01-22] MEDS ORDERED: ALBUTEROL SO4 2.5/IPRATROPIUM 0.5 INH SOL 3 ML VIAL.NEB. NEB PRN (11:40)
--- NOTE | 2020-01-22 11:43 | PN ---
Progress Note (short form) - Note Progress Note: s: stable dyspnea. no chest pain, palps, dizziness Current Medications Albuterol/Ipratropium (Duoneb -) 1 amp NEB RQID [facility] Last Admin: 01/22/20 11:31 Dose: 1 amp Documented by: Allopurinol (Zyloprim -) 300 mg PO DAILY [facility] Last Admin: 01/22/20 09:56 Dose: 300 mg Documented by: Atorvastatin Calcium (Lipitor -) 10 mg PO [facility] Last Admin: 01/21/20 21:47 Dose: 10 mg Documented by: Dabigatran (Pradaxa -) 75 mg PO BID [facility] Last Admin: 01/22/20 09:59 Dose: 75 mg Documented by: Furosemide (Lasix Injection -) 40 mg IVPUSH DAILY [facility] Last Admin: 01/22/20 09:56 Dose: 40 mg Documented by: Glipizide (Glucotrol Xl -) 5 mg PO DAILY@0700 [facility] Last Admin: 01/22/20 06:41 Dose: 5 mg Documented by: Azithromycin (Zithromax 500mg Ivpb (Pre-Docked)) 500 mg in 250 mls @ 250 mls/hr IVPB DAILY [facility] Last Admin: 01/22/20 09:55 Dose: 250 mls/hr Documented by: Ceftriaxone Sodium 2 gm/ (Dextrose) 100 mls @ 200 mls/hr IVPB DAILY [facility]; Protocol Last Admin: 01/22/20 09:54 Dose: 200 mls/hr Documented by: Insulin Aspart (Novolog Vial Sliding Scale -) 1 vial SQ TIDAC [facility]; Protocol Last Admin: 01/22/20 06:41 Dose: Not Given Documented by: Metoprolol Succinate (Toprol Xl -) 100 mg PO DAILY [facility] Last Admin: 01/22/20 09:56 Dose: 100 mg Documented by: Montelukast Sodium (Singulair -) 10 mg PO [facility] Last Admin: 01/21/20 21:47 Dose: 10 mg Documented by: Vital Signs Period Temp Pulse Resp BP Sys/Ellis Pulse Ox Last 24 Hr 97.3 F-98.3 F 91-101 19-20 97-138/53-77 94 NAD Cardiovascular: Yes: Pulse Irregular Respiratory: Yes: Rhonchi, Other (decreased breath sounds bases) Gastrointestinal: Yes: Soft, Abdomen, Obese Edema: Yes Edema: LLE: 1+, RLE: 1+ Neurological: Yes: Alert, Oriented no jaudnice, diaphoresis not agitated - ....Imaging EKG: Image Reviewed Assessment/Plan echo 01/2020: nl lv/rv, ivonne, mild mr mibi 09/2017: no ischemia ecg: afib, 108, nl qtc, no ischemic changes ct chest: bibasilar pna and bl effs tele: afib, 90s a/p: 84 m hx copd, htn, hld, afib, dchf here with sob. sob, pna, acute/chronic diastolic chf: -cont abx for pna -has mild pleural effs, likely related to pna -edema stable, wt up today - inc lasix to 40 mg IV BID -no signs acs htn: -cont home meds hld: -cont statin afib: -cont ac, on Pradaxa -cont toprol for rate control.
--- NOTE | 2020-01-22 14:06 | CON.PULM ---
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 Patient complains of progressively worsening shortness of breath. He endorses dyspnea on exertion, noting if he walks ~15 feet he hyperventilates and feels like he cannot catch his breath. Daughter at bedside notes the patient has had progressively worsening conversational dyspnea, stating he become short of breath after speaking 3-4 sentences. He endorses an associated cough productive of phlegm. Denies any chest pain at this time. Patient has an enlarged thyroid with retrosternal extension which is compressing his trachea and causing stridor. - History Source History Provided By: Patient, Family Member, Medical Record Limitations to Obtaining History: No Limitations - Past Medical History [employer] MA[employer]: No: Alzheimer's Cardio/Vascular: Yes: AFIB, CHF Pulmonary: Yes: COPD, Other (asbestos exposure) Endocrine: Yes: Other (large goiter with tracheal compression) - Alcohol/Substance Use Hx Alcohol Use: No - Smoking History Smoking history: Former smoker Have you smoked in the past 12 months: No If you are a former smoker, when did you quit?: 42 YRS AGO - Social History ADL: Independent Place of : [facility] History of Recent Travel: No Home Medications - Allergies Allergies/Adverse Reactions: Allergies Allergy/AdvReac Type Severity Reaction Status Date / Time No Known Allergies Allergy Verified 01/19/20 08:28 - Home Medications Home Medications: Ambulatory Orders Allopurinol 300 mg PO DAILY 01/19/20 Amlodipine Bes/Olmesartan Med [Amlodipine-Olmesartan 5-40 mg] 1 each PO 01/19/20 Dabigatran Etexilate Mesylate [Pradaxa -] 75 mg PO BID 01/19/20 Glipizide [Glipizide Xl] 5 mg PO DAILY 01/19/20 Metoprolol Succinate [Toprol Xl] 100 mg PO DAILY 01/19/20 Montelukast Sodium [Singulair] 10 mg PO HS 01/19/20 Pravastatin Sodium [Pravachol (Nf)] 40 mg PO HS 01/19/20 Triamterene/Hydrochlorothiazid [Triamterene-Hctz 37.5-25 mg Cp] 1 each PO DAILY 01/19/20 Family Medical History Family History: Unremarkable Review of Systems - Review of Systems Constitutional: denies: Fever Eyes: denies: Blurred Vision HENT: denies: Difficult Swallowing Neck: denies: Decreased ROM Cardiovascular: reports: Shortness of Breath. denies: Chest Pain, Palpitations Respiratory: reports: Cough, Exercise Intolerance, SOB, SOB on Exertion, Wheezing. denies: Hemoptysis Gastrointestinal: denies: Abdominal Pain Genitourinary: denies: Burning Physical Exam Vital Sings: Vital Signs Temperature 97.8 F 01/22/20 05:00 Pulse Rate 94 H 01/22/20 05:00 Respiratory Rate 19 01/22/20 05:00 Blood Pressure 138/77 01/22/20 05:00 O2 Sat by Pulse Oximetry (%) 94 L 01/21/20 21:00 Constitutional: Yes: Calm Eyes: Yes: EOM Intact HENT: Yes: Normocephalic Neck: Yes: Thyromegaly Cardiovascular: Yes: Regular Rate and Rhythm, S1, S2 Respiratory: Yes: Diminished, Rhonchi, Stridor, Wheezes Gastrointestinal: Yes: Abdomen, Obese Edema: No Neurological: Yes: Alert ...Motor Strength: WNL Psychiatric: Yes: WNL Labs: CBC, BMP 01/20/20 06:00 01/21/20 06:28 ABG Results ABG pH 7.46 (7.35-7.45) H 01/19/20 11:10 ABG pCO2 at Pt Temp 36.6 mmHg (35-45) 01/19/20 11:10 ABG pO2 at Pt Temp 83.8 mmHg (80-100) 01/19/20 11:10 ABG HCO3 25.9 mmol/L (22-27) 01/19/20 11:10 ABG O2 Sat (Measured) 94.1 % (95-98) L 01/19/20 11:10 ABG O2 Content No Result Required. 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 (2) Acute CHF Code(s): I50.9 - HEART FAILURE, UNSPECIFIED Qualifiers: Heart failure type: unspecified Qualified Code(s): I50.9 - Heart failure, unspecified (3) Acute exacerbation of chronic obstructive pulmonary disease (COPD) Code(s): J44.1 - CHRONIC OBSTRUCTIVE PULMONARY DISEASE W (ACUTE) EXACERBATION (4) Pleural effusion Code(s): J90 - PLEURAL EFFUSION, NOT ELSEWHERE CLASSIFIED (5) Pneumonia Code(s): J18.9 - PNEUMONIA, UNSPECIFIED ORGANISM Qualifiers: Pneumonia type: due to unspecified organism Laterality: bilateral Lung location: unspecified part of lung Qualified Code(s): J18.9 - Pneumonia, unspecified organism (6) Rapid atrial fibrillation Code(s): I48.91 - UNSPECIFIED ATRIAL FIBRILLATION (7) Stridor Code(s): R06.1 - STRIDOR Assessment/Plan Component of upper airway obstruction due to thyromegaly with retrosternal extension causing tracheal compression and stridor Cardiomegaly/atrial fibrillation/bilateral effusions/compressive atelectasis Left base infiltrate h/o copd /asbestos exposure O2 supplementation/diuretics/rate control/bronchodilators/antibiotic s/anticoagulation Would suggest ent evaluation for goiter Will follow Arron Maddox MD
[2020-01-22] MEDS: FUROSEMIDE 40 MG/4 ML INJECTABLE VIAL IVPB SCH (16:12)
[2020-01-22] MEDS: ATORVASTATIN CA 10 MG TABLET (FP) PO SCH (21:19)
[2020-01-22] MEDS: MONTELUKAST NA 10 MG TABLET PO SCH (21:19)
[2020-01-23] MEDS: INSULIN SLIDING SCALE (NOVOLOG) 1 VIAL SQ SCH ×3 (06:44→18:00)
[2020-01-23] MEDS: FUROSEMIDE 40 MG/4 ML INJECTABLE VIAL IVPB SCH ×2 (06:46→13:48)
[2020-01-23] MEDS: glipiZIDE-XL 5 MG TAB.ER.24 PO SCH (06:46)
[2020-01-23] MEDS: ALBUTEROL SO4 2.5/IPRATROPIUM 0.5 INH SOL 3 ML VIAL.NEB. NEB SCH ×4 (08:12→21:20)
[2020-01-23 08:23] LABS: BLOOD UREA NITROGEN 35.6 mg/dL (7-18); CALCIUM 8.4 mg/dL (8.5-10.1); CREATININE 1.6 mg/dL (0.55-1.3)
[2020-01-23] MEDS ORDERED: PT OWN MED DRAWER 7, Y5N ONE ×2 (09:05→21:17)
[2020-01-23] MEDS ORDERED: DEXTROSE 5%-WATER 100 ML IVPB ONE (09:07)
[2020-01-23] MEDS: ALLOPURINOL 300 MG TABLET (FP) PO SCH (09:50)
[2020-01-23] MEDS: CEFTRIAXONE 2 GM in DEXTROSE 5%-WATER 100 ML IVPB SCH (09:50)
[2020-01-23] MEDS: DABIGATRAN ETEXILATE MESYLATE 75 MG CAPSULE PO SCH ×2 (09:50→21:31)
[2020-01-23] MEDS: AZITHROMYCIN IVPB 500 MG/250 ML BAG IVPB SCH (09:51)
--- NOTE | 2020-01-23 11:26 | PN ---
Progress Note (short form) - Note Progress Note: daughter at bedside Pt states he feels better still wheezing daughter at bedside Vital Signs - 24 hr 01/22/20 01/22/20 01/23/20 18:00 21:00 01:09 Temperature 97.5 F L 98 F 97.6 F Pulse Rate 85 77 116 H Respiratory 20 20 20 Rate Blood Pressure 148/77 153/82 122/72 O2 Sat by Pulse 93 L Oximetry (%) 01/23/20 01/23/20 01/23/20 06:00 09:00 14:00 Temperature 97.6 F 97.7 F 97.5 F L Pulse Rate 92 H 84 98 H Respiratory 20 22 H 20 Rate Blood Pressure 152/85 130/64 121/60 O2 Sat by Pulse 95 Oximetry (%) Current Medications Generic Name Dose Route Start Last Admin Trade Name Freq PRN Reason Stop Dose Admin Albuterol/Ipratropium 1 amp 01/21/20 12:00 01/23/20 11:30 Duoneb - NEB 1 amp RQID PEEWEE Administration Albuterol/Ipratropium 1 amp 01/22/20 11:40 Duoneb - NEB Q4H PRN SHORTNESS OF BREATH Allopurinol 300 mg 01/20/20 10:00 01/23/20 09:50 Zyloprim - PO 300 mg DAILY PEEWEE Administration Atorvastatin Calcium 10 mg 01/19/20 22:00 01/22/20 21:19 Lipitor - PO 10 mg HS PEEWEE Administration Dabigatran 75 mg 01/19/20 22:00 01/23/20 09:50 Pradaxa - PO 75 mg BID PEEWEE Administration Furosemide 80 mg 01/22/20 16:00 01/23/20 13:48 Lasix Injection - IVPB 80 mg BID@0600,1400 PEEWEE Administration Glipizide 5 mg 01/20/20 07:00 01/23/20 06:46 Glucotrol Xl - PO 5 mg DAILY@0700 PEEWEE Administration Azithromycin 500 mg in 250 mls @ 250 mls/hr 01/20/20 10:00 01/23/20 09:51 Zithromax 500mg Ivpb (Pre-Docked) IVPB 250 mls/hr DAILY PEEWEE Administration Ceftriaxone Sodium 2 gm/ 100 mls @ 200 mls/hr 01/20/20 17:15 01/23/20 09:50 Dextrose IVPB 200 mls/hr DAILY PEEWEE Administration Protocol Insulin Aspart 1 vial 01/19/20 16:30 01/23/20 12:18 Novolog Vial Sliding Scale - SQ Not Given TIDAC [facility] Protocol Metoprolol Succinate 100 mg 01/20/20 10:00 01/23/20 09:50 Toprol Xl - PO 100 mg DAILY PEEWEE Administration Montelukast Sodium 10 mg 01/19/20 22:00 01/22/20 21:19 Singulair - PO 10 mg HS PEEWEE Administration Laboratory Results - last 24 hr 01/22/20 01/23/20 01/23/20 17:25 05:28 06:45 Sodium 144 Potassium 4.0 Chloride 105 Carbon Dioxide 33 H Anion Gap 6 L BUN 35.6 H Creatinine 1.6 H Est GFR (CKD-EPI)AfAm 45.18 Est GFR (CKD-EPI)NonAf 38.98 POC Glucometer 78 99 Random Glucose 96 Calcium 8.4 L 01/23/20 11:48 Sodium Potassium Chloride Carbon Dioxide Anion Gap BUN Creatinine Est GFR (CKD-EPI)AfAm Est GFR (CKD-EPI)NonAf POC Glucometer 140 Random Glucose Calcium 01/20/20 21:30 Sputum - Expectorated Gram Stain - Final 01/20/20 21:30 Sputum - Expectorated Sputum Culture - Preliminary NORMAL RESPIRATORY HERNANDEZ 01/19/20 13:36 Blood - Peripheral Venous Blood Culture - Preliminary NO GROWTH OBTAINED AFTER 48 HOURS, INCUBATION TO CONTINUE FOR 3 DAYS. 01/19/20 13:36 Blood - Peripheral Venous Blood Culture - Preliminary NO GROWTH OBTAINED AFTER 48 HOURS, INCUBATION TO CONTINUE FOR 3 DAYS. 01/20/20 12:45 Urine For Antigen Detection Legionella Antigen - Final 01/20/20 12:45 Urine For Antigen Detection Streptococcus pneumoniae Antigen (M - Final S1 S2 Irregular Lungs ronchi decreased Abd-soft, obese, NT trace edema A/p Assessment/Plan Pneumonia -- iv antibiotics -- -- Influenza screen negative -- CT chest noted --ID eval noted -- nebs, O2 -- urine antigens negative -- sputum-- normal -- pulmonary eval --->appreciated Goiter -- tracheal compression -- ENT eval CHF decompensation -- diastolic -- Echo reviewed -- Cardiology eval noted --on iv lasix -- monitor daily weight and I and O -- monitor renal function Rapid Afib -- on Pradaxa -- rate is controlled clinically improving but needs ENT eval with regards to goiter Problem List - Problems (1) Rapid atrial fibrillation Code(s): I48.91 - UNSPECIFIED ATRIAL FIBRILLATION (2) Acute CHF Code(s): I50.9 - HEART FAILURE, UNSPECIFIED Qualifiers: Heart failure type: unspecified Qualified Code(s): I50.9 - Heart failure, unspecified (3) Acute exacerbation of chronic obstructive pulmonary disease (COPD) Code(s): J44.1 - CHRONIC OBSTRUCTIVE PULMONARY DISEASE W (ACUTE) EXACERBATION (4) Pleural effusion Code(s): J90 - PLEURAL EFFUSION, NOT ELSEWHERE CLASSIFIED (5) Pneumonia Code(s): J18.9 - PNEUMONIA, UNSPECIFIED ORGANISM Qualifiers: Pneumonia type: due to unspecified organism Laterality: bilateral Lung location: unspecified part of lung Qualified Code(s): J18.9 - Pneumonia, unspecified organism (6) Acute kidney failure Code(s): N17.9 - ACUTE KIDNEY FAILURE, UNSPECIFIED
--- NOTE | 2020-01-23 11:55 | PN ---
Progress Note (short form) - Note Progress Note: s: dyspnea improving. no chest pain, palps, dizziness Current Medications Albuterol/Ipratropium (Duoneb -) 1 amp NEB RQID [facility] Last Admin: 01/23/20 11:30 Dose: 1 amp Documented by: Albuterol/Ipratropium (Duoneb -) 1 amp NEB Q4H PRN PRN Reason: SHORTNESS OF BREATH Allopurinol (Zyloprim -) 300 mg PO DAILY [facility] Last Admin: 01/23/20 09:50 Dose: 300 mg Documented by: Atorvastatin Calcium (Lipitor -) 10 mg PO [facility] Last Admin: 01/22/20 21:19 Dose: 10 mg Documented by: Dabigatran (Pradaxa -) 75 mg PO BID [facility] Last Admin: 01/23/20 09:50 Dose: 75 mg Documented by: Furosemide (Lasix Injection -) 80 mg IVPB BID@0600,1400 [facility] Last Admin: 01/23/20 06:46 Dose: 80 mg Documented by: Glipizide (Glucotrol Xl -) 5 mg PO DAILY@0700 [facility] Last Admin: 01/23/20 06:46 Dose: 5 mg Documented by: Azithromycin (Zithromax 500mg Ivpb (Pre-Docked)) 500 mg in 250 mls @ 250 mls/hr IVPB DAILY [facility] Last Admin: 01/23/20 09:51 Dose: 250 mls/hr Documented by: Ceftriaxone Sodium 2 gm/ (Dextrose) 100 mls @ 200 mls/hr IVPB DAILY [facility]; Protocol Last Admin: 01/23/20 09:50 Dose: 200 mls/hr Documented by: Insulin Aspart (Novolog Vial Sliding Scale -) 1 vial SQ TIDAC [facility]; Protocol Last Admin: 01/23/20 06:44 Dose: Not Given Documented by: Metoprolol Succinate (Toprol Xl -) 100 mg PO DAILY [facility] Last Admin: 01/23/20 09:50 Dose: 100 mg Documented by: Montelukast Sodium (Singulair -) 10 mg PO [facility] Last Admin: 01/22/20 21:19 Dose: 10 mg Documented by: Vital Signs Period Temp Pulse Resp BP Sys/Ellis Pulse Ox Last 24 Hr 97.4 F-98 F 77-116 20-22 122-153/64-85 93 NAD Cardiovascular: Yes: Pulse Irregular Respiratory: Yes: Rhonchi, Other (decreased breath sounds bases) Gastrointestinal: Yes: Soft, Abdomen, Obese Edema: Yes Edema: LLE: 1+, RLE: 1+ Neurological: Yes: Alert, Oriented no jaudnice, diaphoresis not agitated - ....Imaging EKG: Image Reviewed Assessment/Plan echo 01/2020: nl lv/rv, ivonne, mild mr mibi 09/2017: no ischemia ecg: afib, 108, nl qtc, no ischemic changes ct chest: bibasilar pna and bl effs tele: afib, 90s a/p: 84 m hx copd, htn, hld, afib, dchf here with sob. sob, pna, acute/chronic diastolic chf: -cont abx for pna -has mild pleural effs, likely related to pna -cont lasix to 40 mg IV BID -no signs acs htn: -cont home meds hld: -cont statin afib: -cont ac, on Pradaxa -cont toprol for rate control.
--- NOTE | 2020-01-23 12:24 | PN ---
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 (2) Acute CHF Code(s): I50.9 - HEART FAILURE, UNSPECIFIED Qualifiers: Heart failure type: unspecified Qualified Code(s): I50.9 - Heart failure, unspecified (3) Acute exacerbation of chronic obstructive pulmonary disease (COPD) Code(s): J44.1 - CHRONIC OBSTRUCTIVE PULMONARY DISEASE W (ACUTE) EXACERBATION (4) Pleural effusion Code(s): J90 - PLEURAL EFFUSION, NOT ELSEWHERE CLASSIFIED (5) Pneumonia Code(s): J18.9 - PNEUMONIA, UNSPECIFIED ORGANISM Qualifiers: Pneumonia type: due to unspecified organism Laterality: bilateral Lung location: unspecified part of lung Qualified Code(s): J18.9 - Pneumonia, unspecified organism (6) Rapid atrial fibrillation Code(s): I48.91 - UNSPECIFIED ATRIAL FIBRILLATION (7) Stridor Code(s): R06.1 - STRIDOR Assessment/Plan Component of upper airway obstruction due to thyromegaly with retrosternal extension causing tracheal compression and stridor Cardiomegaly/atrial fibrillation/bilateral effusions/compressive atelectasis Left base infiltrate h/o copd /asbestos exposure O2 supplementation/diuretics/rate control/bronchodilators/antibiotics/anticoagulation Await ent evaluation for goiter Paola NORRIS MD Problem List - Problems (1) 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 (2) Acute CHF Code(s): I50.9 - HEART FAILURE, UNSPECIFIED Qualifiers: Heart failure type: unspecified Qualified Code(s): I50.9 - Heart failure, unspecified (3) Acute exacerbation of chronic obstructive pulmonary disease (COPD) Code(s): J44.1 - CHRONIC OBSTRUCTIVE PULMONARY DISEASE W (ACUTE) EXACERBATION (4) Pleural effusion Code(s): J90 - PLEURAL EFFUSION, NOT ELSEWHERE CLASSIFIED (5) Pneumonia Code(s): J18.9 - PNEUMONIA, UNSPECIFIED ORGANISM Qualifiers: Pneumonia type: due to unspecified organism Laterality: bilateral Lung location: unspecified part of lung Qualified Code(s): J18.9 - Pneumonia, unspecified organism (6) Rapid atrial fibrillation Code(s): I48.91 - UNSPECIFIED ATRIAL FIBRILLATION (7) Stridor Code(s): R06.1 - STRIDOR
[2020-01-23] MEDS: MONTELUKAST NA 10 MG TABLET PO SCH (21:31)
[2020-01-23] MEDS: ATORVASTATIN CA 10 MG TABLET (FP) PO SCH (21:31)
[2020-01-24] MEDS: FUROSEMIDE 40 MG/4 ML INJECTABLE VIAL IVPB SCH ×2 (05:56→13:57)
[2020-01-24] MEDS: INSULIN SLIDING SCALE (NOVOLOG) 1 VIAL SQ SCH ×3 (06:03→17:01)
[2020-01-24] MEDS: glipiZIDE-XL 5 MG TAB.ER.24 PO SCH (06:03)
[2020-01-24] MEDS ORDERED: PT OWN MED DRAWER 7, Y5N ONE ×2 (08:08→22:10)
[2020-01-24] MEDS ORDERED: DEXTROSE 5%-WATER 100 ML IVPB ONE (08:08)
[2020-01-24] MEDS: ALBUTEROL SO4 2.5/IPRATROPIUM 0.5 INH SOL 3 ML VIAL.NEB. NEB SCH ×4 (08:39→20:20)
[2020-01-24] MEDS: AZITHROMYCIN IVPB 500 MG/250 ML BAG IVPB SCH (09:54)
[2020-01-24] MEDS: CEFTRIAXONE 2 GM in DEXTROSE 5%-WATER 100 ML IVPB SCH (09:54)
[2020-01-24] MEDS: ALLOPURINOL 300 MG TABLET (FP) PO SCH (09:55)
[2020-01-24] MEDS: DABIGATRAN ETEXILATE MESYLATE 75 MG CAPSULE PO SCH ×2 (09:57→22:27)
--- NOTE | 2020-01-24 12:27 | PN ---
Progress Note (short form) - Note Progress Note: Pt sen/ examined chart is reviewed comfortable and feels better denies cp decreased cough Vital Signs Temp 98.6 F 01/24/20 08:57 Pulse 93 H 01/24/20 08:57 Resp 20 01/24/20 09:00 BP 132/74 01/24/20 08:57 Pulse Ox 94 L 01/24/20 09:00 Intake & Output 01/23/20 01/24/20 01/24/20 23:59 11:59 23:59 Intake Total 240 Output Total 300 1000 Balance -300 -760 Weight 190 lb 6.4 oz Intake: Oral 240 Output: Urine 300 1000 Void 300 1000 Other: Voiding Method Urinal Urinal # Unmeasured Voids Void 2 1 Bowel Movement Yes # Bowel Movements 1 Weight Measurement Method Standing Scale Active Medications Albuterol/Ipratropium (Duoneb -) 1 amp NEB RQID [facility] Last Admin: 01/24/20 08:39 Dose: 1 amp Documented by: Albuterol/Ipratropium (Duoneb -) 1 amp NEB Q4H PRN PRN Reason: SHORTNESS OF BREATH Allopurinol (Zyloprim -) 300 mg PO DAILY [facility] Last Admin: 01/24/20 09:55 Dose: 300 mg Documented by: Atorvastatin Calcium (Lipitor -) 10 mg PO HS [facility] Last Admin: 01/23/20 21:31 Dose: 10 mg Documented by: Dabigatran (Pradaxa -) 75 mg PO BID [facility] Last Admin: 01/24/20 09:57 Dose: 75 mg Documented by: Furosemide (Lasix Injection -) 80 mg IVPB BID@0600,1400 [facility] Last Admin: 01/24/20 05:56 Dose: 80 mg Documented by: Glipizide (Glucotrol Xl -) 5 mg PO DAILY@0700 [facility] Last Admin: 01/24/20 06:03 Dose: 5 mg Documented by: Azithromycin (Zithromax 500mg Ivpb (Pre-Docked)) 500 mg in 250 mls @ 250 mls/hr IVPB DAILY [facility] Last Admin: 01/24/20 09:54 Dose: 250 mls/hr Documented by: Ceftriaxone Sodium 2 gm/ (Dextrose) 100 mls @ 200 mls/hr IVPB DAILY [facility]; Protocol Last Admin: 01/24/20 09:54 Dose: 200 mls/hr Documented by: Insulin Aspart (Novolog Vial Sliding Scale -) 1 vial SQ TIDAC [facility]; Protocol Last Admin: 01/24/20 11:18 Dose: Not Given Documented by: Metoprolol Succinate (Toprol Xl -) 100 mg PO DAILY [facility] Last Admin: 01/24/20 09:55 Dose: 100 mg Documented by: Montelukast Sodium (Singulair -) 10 mg PO HS [facility] Last Admin: 01/23/20 21:31 Dose: 10 mg Documented by: CBC, BMP 01/20/20 06:00 01/23/20 06:45 PHYSICAL EXAM S1 S2 Irregular Lungs ronchi-- decreased Abd-soft, obese, NT trace edema A/p Assessment/Plan Pneumonia -- iv antibiotics -- -- Influenza screen negative -- CT chest noted --ID eval noted -- nebs, O2 -- urine antigens negative -- sputum-- normal -- pulmonary eval --->appreciated Goiter -- tracheal compression -- ENT eval- pENDING CHF decompensation -- diastolic -- Echo reviewed -- Cardiology eval noted --on iv lasix -- monitor daily weight and I and O -- monitor renal function Rapid Afib -- on Pradaxa -- rate is controlled clinically improving WILL FOLLOW Problem List - Problems (1) Acute CHF Code(s): I50.9 - HEART FAILURE, UNSPECIFIED Qualifiers: Heart failure type: unspecified Qualified Code(s): I50.9 - Heart failure, unspecified (2) Acute exacerbation of chronic obstructive pulmonary disease (COPD) Code(s): J44.1 - CHRONIC OBSTRUCTIVE PULMONARY DISEASE W (ACUTE) EXACERBATION (3) Pneumonia Code(s): J18.9 - PNEUMONIA, UNSPECIFIED ORGANISM Qualifiers: Pneumonia type: due to unspecified organism Laterality: bilateral Lung location: unspecified part of lung Qualified Code(s): J18.9 - Pneumonia, unspecified organism (4) Rapid atrial fibrillation Code(s): I48.91 - UNSPECIFIED ATRIAL FIBRILLATION (5) Acute kidney failure Code(s): N17.9 - ACUTE KIDNEY FAILURE, UNSPECIFIED
--- NOTE | 2020-01-24 12:52 | PN ---
Progress Note (short form) - Note Progress Note: PULMONARY States breathing is improving, less leg swelling. No chest pain. Vital Signs Period Temp Pulse Resp BP Sys/Ellis Pulse Ox Last 24 Hr 97.5 F-98.9 F 91-105 20-20 118-145/54-88 94-94 Intake & Output 01/21/20 01/22/20 01/23/20 01/24/20 22:59 22:59 23:59 23:59 Intake Total 240 Output Total 1000 Balance -760 Weight 86.364 kg Gen: NAD at rest Heart: RRR Lung: basilar rales Abd: soft, nontender Ext: + edema CBC, BMP 01/20/20 06:00 01/23/20 06:45 Active Medications Albuterol/Ipratropium (Duoneb -) 1 amp NEB RQID [facility] Last Admin: 01/24/20 08:39 Dose: 1 amp Documented by: Albuterol/Ipratropium (Duoneb -) 1 amp NEB Q4H PRN PRN Reason: SHORTNESS OF BREATH Allopurinol (Zyloprim -) 300 mg PO DAILY [facility] Last Admin: 01/24/20 09:55 Dose: 300 mg Documented by: Atorvastatin Calcium (Lipitor -) 10 mg PO HS [facility] Last Admin: 01/23/20 21:31 Dose: 10 mg Documented by: Dabigatran (Pradaxa -) 75 mg PO BID [facility] Last Admin: 01/24/20 09:57 Dose: 75 mg Documented by: Furosemide (Lasix Injection -) 80 mg IVPB BID@0600,1400 [facility] Last Admin: 01/24/20 05:56 Dose: 80 mg Documented by: Glipizide (Glucotrol Xl -) 5 mg PO DAILY@0700 [facility] Last Admin: 01/24/20 06:03 Dose: 5 mg Documented by: Azithromycin (Zithromax 500mg Ivpb (Pre-Docked)) 500 mg in 250 mls @ 250 mls/hr IVPB DAILY [facility] Last Admin: 01/24/20 09:54 Dose: 250 mls/hr Documented by: Ceftriaxone Sodium 2 gm/ (Dextrose) 100 mls @ 200 mls/hr IVPB DAILY [facility]; Protocol Last Admin: 01/24/20 09:54 Dose: 200 mls/hr Documented by: Insulin Aspart (Novolog Vial Sliding Scale -) 1 vial SQ TIDAC [facility]; Protocol Last Admin: 01/24/20 11:18 Dose: Not Given Documented by: Metoprolol Succinate (Toprol Xl -) 100 mg PO DAILY [facility] Last Admin: 01/24/20 09:55 Dose: 100 mg Documented by: Montelukast Sodium (Singulair -) 10 mg PO HS [facility] Last Admin: 01/23/20 21:31 Dose: 10 mg Documented by: A/P Acute on Chronic Diastolic Heart Failure Atrial Fibrillation COPD r/o Pneumonia HTN Hyperlipidemia Goiter - continue lasix - monitor urine output, creatinine - on empiric antibiotics - f/u cultures - ENT eval - rate control - continue anticoagulation
--- NOTE | 2020-01-24 15:03 | PN ---
Progress Note (short form) - Note Progress Note: s: no chest pain, palps, dizziness, dyspnea Current Medications Albuterol/Ipratropium (Duoneb -) 1 amp NEB RQID [facility] Last Admin: 01/24/20 08:39 Dose: 1 amp Documented by: Albuterol/Ipratropium (Duoneb -) 1 amp NEB Q4H PRN PRN Reason: SHORTNESS OF BREATH Allopurinol (Zyloprim -) 300 mg PO DAILY [facility] Last Admin: 01/24/20 09:55 Dose: 300 mg Documented by: Atorvastatin Calcium (Lipitor -) 10 mg PO [facility] Last Admin: 01/23/20 21:31 Dose: 10 mg Documented by: Dabigatran (Pradaxa -) 75 mg PO BID [facility] Last Admin: 01/24/20 09:57 Dose: 75 mg Documented by: Furosemide (Lasix Injection -) 80 mg IVPB BID@0600,1400 [facility] Last Admin: 01/24/20 13:57 Dose: 80 mg Documented by: Glipizide (Glucotrol Xl -) 5 mg PO DAILY@0700 [facility] Last Admin: 01/24/20 06:03 Dose: 5 mg Documented by: Azithromycin (Zithromax 500mg Ivpb (Pre-Docked)) 500 mg in 250 mls @ 250 mls/hr IVPB DAILY [facility] Last Admin: 01/24/20 09:54 Dose: 250 mls/hr Documented by: Ceftriaxone Sodium 2 gm/ (Dextrose) 100 mls @ 200 mls/hr IVPB DAILY [facility]; Protocol Last Admin: 01/24/20 09:54 Dose: 200 mls/hr Documented by: Insulin Aspart (Novolog Vial Sliding Scale -) 1 vial SQ TIDAC [facility]; Protocol Last Admin: 01/24/20 11:18 Dose: Not Given Documented by: Metoprolol Succinate (Toprol Xl -) 100 mg PO DAILY [facility] Last Admin: 01/24/20 09:55 Dose: 100 mg Documented by: Montelukast Sodium (Singulair -) 10 mg PO [facility] Last Admin: 01/23/20 21:31 Dose: 10 mg Documented by: Vital Signs Period Temp Pulse Resp BP Sys/Ellis Pulse Ox Last 24 Hr 97.7 F-98.9 F 91-105 20-20 118-145/54-88 94-94 NAD Cardiovascular: Yes: Pulse Irregular Respiratory: Yes: Rhonchi, Other (decreased breath sounds bases) Gastrointestinal: Yes: Soft, Abdomen, Obese Edema: Yes Edema: LLE: 1+, RLE: 1+ Neurological: Yes: Alert, Oriented no jaudnice, diaphoresis not agitated - ....Imaging EKG: Image Reviewed Assessment/Plan echo 01/2020: nl lv/rv, ivonne, mild mr mibi 09/2017: no ischemia ecg: afib, 108, nl qtc, no ischemic changes ct chest: bibasilar pna and bl effs tele: afib, 90s a/p: 84 m hx copd, htn, hld, afib, dchf here with sob. sob, pna, acute/chronic diastolic chf: -cont abx for pna -has mild pleural effs, likely related to pna -cont lasix to 80 mg IV BID - monitor daily weights, Cr -no signs acs htn: -cont home meds hld: -cont statin afib: -cont ac, on Pradaxa -cont toprol for rate control.
[2020-01-24 20:14] VITALS: BMI 30.7
--- NOTE | 2020-01-24 21:34 | PN ---
Progress Note, Physician History of Present Illness: AWAKE, ALERT SEATED IN BED REPORTS BREATHING IMPROVED STILL WITH COUGH NO C/O CHEST PAIN NO FEVER/ CHILLS - Current Medication List Current Medications: Active Medications Albuterol/Ipratropium (Duoneb -) 1 amp NEB RQID [facility] Last Admin: 01/24/20 16:01 Dose: 1 amp Documented by: Albuterol/Ipratropium (Duoneb -) 1 amp NEB Q4H PRN PRN Reason: SHORTNESS OF BREATH Allopurinol (Zyloprim -) 300 mg PO DAILY [facility] Last Admin: 01/24/20 09:55 Dose: 300 mg Documented by: Atorvastatin Calcium (Lipitor -) 10 mg PO HS [facility] Last Admin: 01/23/20 21:31 Dose: 10 mg Documented by: Dabigatran (Pradaxa -) 75 mg PO BID [facility] Last Admin: 01/24/20 09:57 Dose: 75 mg Documented by: Furosemide (Lasix Injection -) 80 mg IVPB BID@0600,1400 [facility] Last Admin: 01/24/20 13:57 Dose: 80 mg Documented by: Glipizide (Glucotrol Xl -) 5 mg PO DAILY@0700 [facility] Last Admin: 01/24/20 06:03 Dose: 5 mg Documented by: Azithromycin (Zithromax 500mg Ivpb (Pre-Docked)) 500 mg in 250 mls @ 250 mls/hr IVPB DAILY [facility] Last Admin: 01/24/20 09:54 Dose: 250 mls/hr Documented by: Ceftriaxone Sodium 2 gm/ (Dextrose) 100 mls @ 200 mls/hr IVPB DAILY [facility]; Protocol Last Admin: 01/24/20 09:54 Dose: 200 mls/hr Documented by: Insulin Aspart (Novolog Vial Sliding Scale -) 1 vial SQ TIDAC [facility]; Protocol Last Admin: 01/24/20 17:01 Dose: Not Given Documented by: Metoprolol Succinate (Toprol Xl -) 100 mg PO DAILY [facility] Last Admin: 01/24/20 09:55 Dose: 100 mg Documented by: Montelukast Sodium (Singulair -) 10 mg PO HS [facility] Last Admin: 01/23/20 21:31 Dose: 10 mg Documented by: - Objective Vital Signs: Vital Signs Temperature 98.0 F 01/24/20 18:00 Pulse Rate 101 H 01/24/20 18:00 Respiratory Rate 01/24/20 18:00 Blood Pressure 136/67 01/24/20 18:00 O2 Sat by Pulse Oximetry (%) 94 L 01/24/20 09:00 Constitutional: Yes: No Distress Eyes: Yes: Conjunctiva Clear Cardiovascular: Yes: Regular Rate and Rhythm, S1, S2 Respiratory: Yes: Rhonchi, Wheezes Gastrointestinal: Yes: Normal Bowel Sounds, Soft. No: Tenderness Edema: Yes Labs: CBC, BMP 01/20/20 06:00 01/23/20 06:45 INR, PTT INR 1.49 (0.83-1.09) H 01/19/20 08:30 Assessment/Plan [id number] ACQUIRED PNEUMONIA ACUTE EXACERBATION COPD CHF SPUTUM C/S YEAST ( CONTAMINANT ) CONTINUE CEFTRIAXONE/ ZITHROMAX
[2020-01-24] MEDS: MONTELUKAST NA 10 MG TABLET PO SCH (22:27)
[2020-01-24] MEDS: ATORVASTATIN CA 10 MG TABLET (FP) PO SCH (22:27)
[2020-01-25] MEDS: FUROSEMIDE 40 MG/4 ML INJECTABLE VIAL IVPB SCH (05:44)
[2020-01-25] MEDS: INSULIN SLIDING SCALE (NOVOLOG) 1 VIAL SQ SCH ×3 (06:17→17:16)
[2020-01-25] MEDS: glipiZIDE-XL 5 MG TAB.ER.24 PO SCH (06:17)
[2020-01-25 07:56] LABS: BLOOD UREA NITROGEN 34.4 mg/dL (7-18); CALCIUM 9.6 mg/dL (8.5-10.1); CREATININE 1.6 mg/dL (0.55-1.3); POTASSIUM 3.6 mmol/L (3.5-5.1)
[2020-01-25] MEDS: ALBUTEROL SO4 2.5/IPRATROPIUM 0.5 INH SOL 3 ML VIAL.NEB. NEB SCH ×4 (08:34→20:10)
[2020-01-25] MEDS ORDERED: DEXTROSE 5%-WATER 100 ML IVPB ONE (09:07)
[2020-01-25] MEDS: DABIGATRAN ETEXILATE MESYLATE 75 MG CAPSULE PO SCH ×2 (09:43→21:32)
[2020-01-25] MEDS: CEFTRIAXONE 2 GM in DEXTROSE 5%-WATER 100 ML IVPB SCH (09:43)
[2020-01-25] MEDS: ALLOPURINOL 300 MG TABLET (FP) PO SCH (09:44)
[2020-01-25] MEDS: AZITHROMYCIN IVPB 500 MG/250 ML BAG IVPB SCH (09:44)
--- NOTE | 2020-01-25 10:25 | PN ---
Progress Note, Physician - Current Medication List Current Medications: Active Medications Albuterol/Ipratropium (Duoneb -) 1 amp NEB RQID [facility] Last Admin: 01/25/20 08:34 Dose: 1 amp Documented by: Albuterol/Ipratropium (Duoneb -) 1 amp NEB Q4H PRN PRN Reason: SHORTNESS OF BREATH Allopurinol (Zyloprim -) 300 mg PO DAILY [facility] Last Admin: 01/25/20 09:44 Dose: 300 mg Documented by: Atorvastatin Calcium (Lipitor -) 10 mg PO [facility] Last Admin: 01/24/20 22:27 Dose: 10 mg Documented by: Dabigatran (Pradaxa -) 75 mg PO BID [facility] Last Admin: 01/25/20 09:43 Dose: 75 mg Documented by: Furosemide (Lasix Injection -) 80 mg IVPB BID@0600,1400 [facility] Last Admin: 01/25/20 05:44 Dose: 80 mg Documented by: Glipizide (Glucotrol Xl -) 5 mg PO DAILY@0700 [facility] Last Admin: 01/25/20 06:17 Dose: 5 mg Documented by: Azithromycin (Zithromax 500mg Ivpb (Pre-Docked)) 500 mg in 250 mls @ 250 mls/hr IVPB DAILY [facility] Last Admin: 01/25/20 09:44 Dose: 250 mls/hr Documented by: Ceftriaxone Sodium 2 gm/ (Dextrose) 100 mls @ 200 mls/hr IVPB DAILY [facility]; Protocol Last Admin: 01/25/20 09:43 Dose: 200 mls/hr Documented by: Insulin Aspart (Novolog Vial Sliding Scale -) 1 vial SQ TIDAC [facility]; Protocol Last Admin: 01/25/20 06:17 Dose: Not Given Documented by: Metoprolol Succinate (Toprol Xl -) 100 mg PO DAILY [facility] Last Admin: 01/25/20 09:44 Dose: 100 mg Documented by: Montelukast Sodium (Singulair -) 10 mg PO [facility] Last Admin: 01/24/20 22:27 Dose: 10 mg Documented by: - Objective Vital Signs: Vital Signs Temperature 98.0 F 01/25/20 05:44 Pulse Rate 100 H 01/25/20 05:44 Respiratory Rate 20 01/25/20 05:44 Blood Pressure 127/66 01/25/20 05:44 O2 Sat by Pulse Oximetry (%) 94 L 01/24/20 21:00 Labs: CBC, BMP 01/20/20 06:00 01/25/20 06:27 INR, PTT INR 1.49 (0.83-1.09) H 01/19/20 08:30 Assessment/Plan A/P Acute on Chronic Diastolic Heart Failure Atrial Fibrillation COPD r/o Pneumonia HTN Hyperlipidemia Goiter - continue lasix - monitor urine output, creatinine - on empiric antibiotics - f/u cultures - ENT eval - rate control - continue anticoagulation
--- NOTE | 2020-01-25 11:19 | PN ---
Progress Note, Physician History of Present Illness: PULMONARY ALERT,OOB-CHAIR,LESS DYSPNEIC,STILL CONGESTED,+ COUGH - Current Medication List Current Medications: Active Medications Albuterol/Ipratropium (Duoneb -) 1 amp NEB RQID [facility] Last Admin: 01/25/20 08:34 Dose: 1 amp Documented by: Albuterol/Ipratropium (Duoneb -) 1 amp NEB Q4H PRN PRN Reason: SHORTNESS OF BREATH Allopurinol (Zyloprim -) 300 mg PO DAILY [facility] Last Admin: 01/25/20 09:44 Dose: 300 mg Documented by: Atorvastatin Calcium (Lipitor -) 10 mg PO [facility] Last Admin: 01/24/20 22:27 Dose: 10 mg Documented by: Dabigatran (Pradaxa -) 75 mg PO BID [facility] Last Admin: 01/25/20 09:43 Dose: 75 mg Documented by: Furosemide (Lasix Injection -) 80 mg IVPB BID@0600,1400 [facility] Last Admin: 01/25/20 05:44 Dose: 80 mg Documented by: Glipizide (Glucotrol Xl -) 5 mg PO DAILY@0700 [facility] Last Admin: 01/25/20 06:17 Dose: 5 mg Documented by: Azithromycin (Zithromax 500mg Ivpb (Pre-Docked)) 500 mg in 250 mls @ 250 mls/hr IVPB DAILY [facility] Last Admin: 01/25/20 09:44 Dose: 250 mls/hr Documented by: Ceftriaxone Sodium 2 gm/ (Dextrose) 100 mls @ 200 mls/hr IVPB DAILY [facility]; Protocol Last Admin: 01/25/20 09:43 Dose: 200 mls/hr Documented by: Insulin Aspart (Novolog Vial Sliding Scale -) 1 vial SQ TIDAC [facility]; Protocol Last Admin: 01/25/20 06:17 Dose: Not Given Documented by: Metoprolol Succinate (Toprol Xl -) 100 mg PO DAILY [facility] Last Admin: 01/25/20 09:44 Dose: 100 mg Documented by: Montelukast Sodium (Singulair -) 10 mg PO [facility] Last Admin: 01/24/20 22:27 Dose: 10 mg Documented by: - Objective Vital Signs: Vital Signs Temperature 97.9 F 01/25/20 10:00 Pulse Rate 105 H 01/25/20 10:00 Respiratory Rate 18 03/10/20 10:00 Blood Pressure 134/72 01/25/20 10:00 O2 Sat by Pulse Oximetry (%) 93 L 01/25/20 09:00 Constitutional: Yes: Well Nourished, Calm Eyes: Yes: WNL HENT: Yes: WNL Neck: Yes: WNL Cardiovascular: Yes: Pulse Irregular, S1, S2 Respiratory: Yes: Rales (BILATERAL RALES AND RHONCHI) Gastrointestinal: Yes: Normal Bowel Sounds, Soft Extremities: Yes: WNL Edema: Yes Labs: CBC, BMP 01/25/20 06:27 Problem List - Problems (1) Acute CHF Code(s): I50.9 - HEART FAILURE, UNSPECIFIED Qualifiers: Heart failure type: unspecified Qualified Code(s): I50.9 - Heart failure, unspecified (2) Acute exacerbation of chronic obstructive pulmonary disease (COPD) Code(s): J44.1 - CHRONIC OBSTRUCTIVE PULMONARY DISEASE W (ACUTE) EXACERBATION (3) Acute kidney failure Code(s): N17.9 - ACUTE KIDNEY FAILURE, UNSPECIFIED (4) Pleural effusion Code(s): J90 - PLEURAL EFFUSION, NOT ELSEWHERE CLASSIFIED (5) Rapid atrial fibrillation Code(s): I48.91 - UNSPECIFIED ATRIAL FIBRILLATION (6) 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
--- NOTE | 2020-01-25 11:55 | PN ---
Progress Note (short form) - Note Progress Note: s: no chest pain, palps, dizziness, dyspnea Current Medications Albuterol/Ipratropium (Duoneb -) 1 amp NEB RQID [facility] Last Admin: 01/25/20 08:34 Dose: 1 amp Documented by: Albuterol/Ipratropium (Duoneb -) 1 amp NEB Q4H PRN PRN Reason: SHORTNESS OF BREATH Allopurinol (Zyloprim -) 300 mg PO DAILY [facility] Last Admin: 01/25/20 09:44 Dose: 300 mg Documented by: Atorvastatin Calcium (Lipitor -) 10 mg PO [facility] Last Admin: 01/24/20 22:27 Dose: 10 mg Documented by: Dabigatran (Pradaxa -) 75 mg PO BID [facility] Last Admin: 01/25/20 09:43 Dose: 75 mg Documented by: Furosemide (Lasix Injection -) 80 mg IVPB BID@0600,1400 [facility] Last Admin: 01/25/20 05:44 Dose: 80 mg Documented by: Glipizide (Glucotrol Xl -) 5 mg PO DAILY@0700 [facility] Last Admin: 01/25/20 06:17 Dose: 5 mg Documented by: Azithromycin (Zithromax 500mg Ivpb (Pre-Docked)) 500 mg in 250 mls @ 250 mls/hr IVPB DAILY [facility] Last Admin: 01/25/20 09:44 Dose: 250 mls/hr Documented by: Ceftriaxone Sodium 2 gm/ (Dextrose) 100 mls @ 200 mls/hr IVPB DAILY [facility]; Protocol Last Admin: 01/25/20 09:43 Dose: 200 mls/hr Documented by: Insulin Aspart (Novolog Vial Sliding Scale -) 1 vial SQ TIDAC [facility]; Protocol Last Admin: 01/25/20 06:17 Dose: Not Given Documented by: Metoprolol Succinate (Toprol Xl -) 100 mg PO DAILY [facility] Last Admin: 01/25/20 09:44 Dose: 100 mg Documented by: Montelukast Sodium (Singulair -) 10 mg PO [facility] Last Admin: 01/24/20 22:27 Dose: 10 mg Documented by: Vital Signs Period Temp Pulse Resp BP Sys/Ellis Pulse Ox Last 24 Hr 97.9 F-98.2 F 89-105 18-20 127-138/66-78 93-94 NAD Cardiovascular: Yes: Pulse Irregular Respiratory: Yes: Rhonchi, Other (decreased breath sounds bases) Gastrointestinal: Yes: Soft, Abdomen, Obese Edema: Yes Edema: LLE: 1+, RLE: 1+ Neurological: Yes: Alert, Oriented no jaudnice, diaphoresis not agitated - ....Imaging EKG: Image Reviewed Assessment/Plan echo 01/2020: nl lv/rv, ivonne, mild mr mibi 09/2017: no ischemia ecg: afib, 108, nl qtc, no ischemic changes ct chest: bibasilar pna and bl effs tele: afib, 90s, episodes 130s a/p: 84 m hx copd, htn, hld, afib, dchf here with sob. sob, pna, acute/chronic diastolic chf: -cont abx for pna -has mild pleural effs, likely related to pna -diuresed with lasix to 80 mg IV BID - likely euvolemic now - change to PO lasix - monitor daily weights, Cr -no signs acs htn: -cont home meds hld: -cont statin afib: -cont ac, on Pradaxa -cont toprol for rate control.
--- NOTE | 2020-01-25 12:56 | PN ---
Progress Note (short form) - Note Progress Note: daughter at bedside Pt states he feels better does not have stridor Vital Signs - 24 hr 01/24/20 01/24/20 01/24/20 14:05 18:00 21:00 Temperature 98.1 F 98.0 F 98.2 F Pulse Rate 103 H 101 H 98 H Respiratory 20 20 20 Rate Blood Pressure 138/78 136/67 138/72 O2 Sat by Pulse 94 L Oximetry (%) 01/25/20 01/25/20 01/25/20 03:43 05:44 09:00 Temperature 98 F 98.0 F Pulse Rate 89 100 H Respiratory 20 20 20 Rate Blood Pressure 138/74 127/66 O2 Sat by Pulse 93 L Oximetry (%) 01/25/20 10:00 Temperature 97.9 F Pulse Rate 105 H Respiratory 18 Rate Blood Pressure 134/72 O2 Sat by Pulse Oximetry (%) Current Medications Generic Name Dose Route Start Last Admin Trade Name Freq PRN Reason Stop Dose Admin Albuterol/Ipratropium 1 amp 01/21/20 12:00 01/25/20 08:34 Duoneb - NEB 1 amp RQID [facility] Administration Albuterol/Ipratropium 1 amp 01/22/20 11:40 Duoneb - NEB Q4H PRN SHORTNESS OF BREATH Allopurinol 300 mg 01/20/20 10:00 01/25/20 09:44 Zyloprim - PO 300 mg DAILY P[facility]WEE Administration Atorvastatin Calcium 10 mg 01/19/20 22:00 01/24/20 22:27 Lipitor - PO 10 mg HS [facility] Administration Dabigatran 75 mg 01/19/20 22:00 01/25/20 09:43 Pradaxa - PO 75 mg BID [facility]WEE Administration Furosemide 40 mg 01/26/20 10:00 Lasix - PO DAILY [facility] Glipizide 5 mg 01/20/20 07:00 01/25/20 06:17 Glucotrol Xl - PO 5 mg DAILY@0700 [facility] Administration Azithromycin 500 mg in 250 mls @ 250 mls/hr 01/20/20 10:00 01/25/20 09:44 Zithromax 500mg Ivpb (Pre-Docked) IVPB 250 mls/hr DAILY [facility] Administration Ceftriaxone Sodium 2 gm/ 100 mls @ 200 mls/hr 01/20/20 17:15 01/25/20 09:43 Dextrose IVPB 200 mls/hr DAILY [facility] Administration Protocol Insulin Aspart 1 vial 01/19/20 16:30 01/25/20 12:11 Novolog Vial Sliding Scale - SQ 2 units TIDAC [facility]WEE Administration Protocol Metoprolol Succinate 100 mg 01/20/20 10:00 01/25/20 09:44 Toprol Xl - PO 100 mg DAILY [facility] Administration Montelukast Sodium 10 mg 01/19/20 22:00 01/24/20 22:27 Singulair - PO 10 mg HS [facility] Administration Laboratory Results - last 24 hr 01/24/20 01/25/20 01/25/20 16:51 05:39 06:27 Sodium 143 Potassium 3.6 Chloride 100 Carbon Dioxide 36 H Anion Gap 7 L BUN 34.4 H Creatinine 1.6 H Est GFR (CKD-EPI)AfAm 45.18 Est GFR (CKD-EPI)NonAf 38.98 POC Glucometer 107 121 Random Glucose 120 H Calcium 9.6 01/25/20 11:30 Sodium Potassium Chloride Carbon Dioxide Anion Gap BUN Creatinine Est GFR (CKD-EPI)AfAm Est GFR (CKD-EPI)NonAf POC Glucometer 166 Random Glucose Calcium 01/20/20 21:30 Sputum - Expectorated Gram Stain - Final 01/20/20 21:30 Sputum - Expectorated Sputum Culture - Preliminary NORMAL RESPIRATORY HERNANDEZ 01/19/20 13:36 Blood - Peripheral Venous Blood Culture - Preliminary NO GROWTH OBTAINED AFTER 48 HOURS, INCUBATION TO CONTINUE FOR 3 DAYS. 01/19/20 13:36 Blood - Peripheral Venous Blood Culture - Preliminary NO GROWTH OBTAINED AFTER 48 HOURS, INCUBATION TO CONTINUE FOR 3 DAYS. 01/20/20 12:45 Urine For Antigen Detection Legionella Antigen - Final 01/20/20 12:45 Urine For Antigen Detection Streptococcus pneumoniae Antigen (M - Final S1 S2 Irregular Lungs ronchi decreased Abd-soft, obese, NT trace edema A/p Assessment/Plan Pneumonia -- iv antibiotics -- -- Influenza screen negative -- CT chest noted --ID eval noted -- nebs, O2 -- urine antigens negative -- sputum-- normal -- pulmonary eval --->appreciated Goiter -- tracheal compression -- ENT eval pending CHF decompensation -- diastolic -- Echo reviewed -- Cardiology eval noted --on iv lasix -- monitor daily weight and I and O -- monitor renal function Rapid Afib -- on Pradaxa -- rate is controlled clinically improving but needs ENT eval with regards to goiter Problem List - Problems (1) Rapid atrial fibrillation Code(s): I48.91 - UNSPECIFIED ATRIAL FIBRILLATION (2) Acute CHF Code(s): I50.9 - HEART FAILURE, UNSPECIFIED Qualifiers: Heart failure type: unspecified Qualified Code(s): I50.9 - Heart failure, unspecified (3) Acute exacerbation of chronic obstructive pulmonary disease (COPD) Code(s): J44.1 - CHRONIC OBSTRUCTIVE PULMONARY DISEASE W (ACUTE) EXACERBATION (4) Pleural effusion Code(s): J90 - PLEURAL EFFUSION, NOT ELSEWHERE CLASSIFIED (5) Pneumonia Code(s): J18.9 - PNEUMONIA, UNSPECIFIED ORGANISM Qualifiers: Pneumonia type: due to unspecified organism Laterality: bilateral Lung location: unspecified part of lung Qualified Code(s): J18.9 - Pneumonia, unspecified organism (6) Acute kidney failure Code(s): N17.9 - ACUTE KIDNEY FAILURE, UNSPECIFIED
[2020-01-25] MEDS ORDERED: ONDANSETRON *ODT* 4 MG TABLET SL PRN (12:58)
[2020-01-25] MEDS ORDERED: PT OWN MED DRAWER 7, Y5N ONE (21:11)
[2020-01-25] MEDS: ATORVASTATIN CA 10 MG TABLET (FP) PO SCH (21:32)
[2020-01-25] MEDS: MONTELUKAST NA 10 MG TABLET PO SCH (21:32)
--- NOTE | 2020-01-25 23:48 | PN ---
Progress Note, Physician History of Present Illness: AWAKE, ALERT OOB IN CHAIR BREATHING IMPROVED APPEARS COMFORTABLE ON RA STILL WITH COUGH NO C/O CHEST PAIN NO FEVER/ CHILLS - Current Medication List Current Medications: Active Medications Albuterol/Ipratropium (Duoneb -) 1 amp NEB RQID [facility] Last Admin: 01/25/20 20:10 Dose: 1 amp Documented by: Albuterol/Ipratropium (Duoneb -) 1 amp NEB Q4H PRN PRN Reason: SHORTNESS OF BREATH Allopurinol (Zyloprim -) 300 mg PO DAILY [facility] Last Admin: 01/25/20 09:44 Dose: 300 mg Documented by: Atorvastatin Calcium (Lipitor -) 10 mg PO HS [facility] Last Admin: 01/25/20 21:32 Dose: 10 mg Documented by: Dabigatran (Pradaxa -) 75 mg PO BID [facility] Last Admin: 01/25/20 21:32 Dose: 75 mg Documented by: Furosemide (Lasix -) 40 mg PO DAILY [facility] Glipizide (Glucotrol Xl -) 5 mg PO DAILY@0700 [facility] Last Admin: 01/25/20 06:17 Dose: 5 mg Documented by: Azithromycin (Zithromax 500mg Ivpb (Pre-Docked)) 500 mg in 250 mls @ 250 mls/hr IVPB DAILY [facility] Last Admin: 01/25/20 09:44 Dose: 250 mls/hr Documented by: Ceftriaxone Sodium 2 gm/ (Dextrose) 100 mls @ 200 mls/hr IVPB DAILY [facility]; Protocol Last Admin: 01/25/20 09:43 Dose: 200 mls/hr Documented by: Insulin Aspart (Novolog Vial Sliding Scale -) 1 vial SQ TIDAC [facility]; Protocol Last Admin: 01/25/20 17:16 Dose: Not Given Documented by: Metoprolol Succinate (Toprol Xl -) 100 mg PO DAILY [facility] Last Admin: 01/25/20 09:44 Dose: 100 mg Documented by: Montelukast Sodium (Singulair -) 10 mg PO [facility] Last Admin: 01/25/20 21:32 Dose: 10 mg Documented by: Ondansetron HCl (Zofran Odt -) 4 mg SL Q8H PRN PRN Reason: NAUSEA - Objective Vital Signs: Vital Signs Temperature 98.2 F 01/25/20 20:00 Pulse Rate 100 H 01/25/20 20:00 Respiratory Rate 01/25/20 20:00 Blood Pressure 126/69 01/25/20 20:00 O2 Sat by Pulse Oximetry (%) 92 L 01/25/20 20:00 Constitutional: Yes: No Distress Cardiovascular: Yes: Regular Rate and Rhythm, S1, S2 Respiratory: Yes: Rhonchi Gastrointestinal: Yes: Normal Bowel Sounds, Soft Edema: Yes Edema: LLE: 1+, RLE: 1+ Labs: CBC, BMP 01/20/20 06:00 01/25/20 06:27 INR, PTT INR 1.49 (0.83-1.09) H 01/19/20 08:30 Assessment/Plan COMMUNITY ACQUIRED PNEUMONIA ACUTE EXACERBATION COPD CHF SPUTUM C/S YEAST ( CONTAMINANT ) CONTINUE CEFTRIAXONE/ ZITHROMAX
[2020-01-26] MEDS: glipiZIDE-XL 5 MG TAB.ER.24 PO SCH (06:14)
[2020-01-26] MEDS: INSULIN SLIDING SCALE (NOVOLOG) 1 VIAL SQ SCH ×3 (06:14→17:32)
[2020-01-26] MEDS: ALBUTEROL SO4 2.5/IPRATROPIUM 0.5 INH SOL 3 ML VIAL.NEB. NEB SCH ×4 (07:40→20:45)
[2020-01-26] MEDS ORDERED: FUROSEMIDE 40 MG TABLET (FP) PO SCH (10:00)
[2020-01-26] MEDS ORDERED: DEXTROSE 5%-WATER 100 ML IVPB ONE (10:26)
[2020-01-26] MEDS: CEFTRIAXONE 2 GM in DEXTROSE 5%-WATER 100 ML IVPB SCH (10:31)
[2020-01-26] MEDS: ALLOPURINOL 300 MG TABLET (FP) PO SCH (10:31)
[2020-01-26] MEDS: AZITHROMYCIN IVPB 500 MG/250 ML BAG IVPB SCH (10:31)
--- NOTE | 2020-01-26 10:50 | PN ---
Progress Note, Physician History of Present Illness: pulmonary alert,oob-chair,feeling better,less dyspneic,less congestion - Current Medication List Current Medications: Active Medications Albuterol/Ipratropium (Duoneb -) 1 amp NEB RQID [facility] Last Admin: 01/26/20 07:40 Dose: Not Given Documented by: Albuterol/Ipratropium (Duoneb -) 1 amp NEB Q4H PRN PRN Reason: SHORTNESS OF BREATH Allopurinol (Zyloprim -) 300 mg PO DAILY [facility] Last Admin: 01/26/20 10:31 Dose: 300 mg Documented by: Atorvastatin Calcium (Lipitor -) 10 mg PO [facility] Last Admin: 01/25/20 21:32 Dose: 10 mg Documented by: Dabigatran (Pradaxa -) 75 mg PO BID [facility] Last Admin: 01/25/20 21:32 Dose: 75 mg Documented by: Furosemide (Lasix -) 40 mg PO DAILY [facility] Last Admin: 01/26/20 10:31 Dose: 40 mg Documented by: Glipizide (Glucotrol Xl -) 5 mg PO DAILY@0700 [facility] Last Admin: 01/26/20 06:14 Dose: 5 mg Documented by: Azithromycin (Zithromax 500mg Ivpb (Pre-Docked)) 500 mg in 250 mls @ 250 mls/hr IVPB DAILY [facility] Last Admin: 01/26/20 10:31 Dose: 250 mls/hr Documented by: Ceftriaxone Sodium 2 gm/ (Dextrose) 100 mls @ 200 mls/hr IVPB DAILY [facility]; Protocol Last Admin: 01/26/20 10:31 Dose: 200 mls/hr Documented by: Insulin Aspart (Novolog Vial Sliding Scale -) 1 vial SQ TIDAC [facility]; Protocol Last Admin: 01/26/20 06:14 Dose: Not Given Documented by: Metoprolol Succinate (Toprol Xl -) 100 mg PO DAILY [facility] Last Admin: 01/26/20 10:31 Dose: 100 mg Documented by: Montelukast Sodium (Singulair -) 10 mg PO HS [facility] Last Admin: 01/25/20 21:32 Dose: 10 mg Documented by: Ondansetron HCl (Zofran Odt -) 4 mg SL Q8H PRN PRN Reason: NAUSEA - Objective Vital Signs: Vital Signs Temperature 97.9 F 01/26/20 06:00 Pulse Rate 97 H 01/26/20 06:00 Respiratory Rate 20 01/26/20 06:00 Blood Pressure 123/68 01/26/20 06:00 O2 Sat by Pulse Oximetry (%) 92 L 01/25/20 20:00 Constitutional: Yes: Well Nourished, Calm Eyes: Yes: WNL HENT: Yes: WNL Neck: Yes: WNL Cardiovascular: Yes: Pulse Irregular, S1, S2 Respiratory: Yes: Rales (bibasilar rales) Gastrointestinal: Yes: Normal Bowel Sounds, Soft Extremities: Yes: WNL Edema: Yes Labs: CBC, BMP 01/20/20 06:00 01/25/20 06:27 INR, PTT INR 1.49 (0.83-1.09) H 01/19/20 08:30 Problem List - Problems (1) Acute CHF Code(s): I50.9 - HEART FAILURE, UNSPECIFIED Qualifiers: Heart failure type: unspecified Qualified Code(s): I50.9 - Heart failure, unspecified (2) Acute exacerbation of chronic obstructive pulmonary disease (COPD) Code(s): J44.1 - CHRONIC OBSTRUCTIVE PULMONARY DISEASE W (ACUTE) EXACERBATION (3) Acute kidney failure Code(s): N17.9 - ACUTE KIDNEY FAILURE, UNSPECIFIED (4) Pleural effusion Code(s): J90 - PLEURAL EFFUSION, NOT ELSEWHERE CLASSIFIED (5) Rapid atrial fibrillation Code(s): I48.91 - UNSPECIFIED ATRIAL FIBRILLATION (6) 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 Assessment/Plan Problem List - Problems (1) Acute CHF Code(s): I50.9 - HEART FAILURE, UNSPECIFIED Qualifiers: Heart failure type: unspecified Qualified Code(s): I50.9 - Heart failure, unspecified (2) Acute exacerbation of chronic obstructive pulmonary disease (COPD) Code(s): J44.1 - CHRONIC OBSTRUCTIVE PULMONARY DISEASE W (ACUTE) EXACERBATION (3) Acute kidney failure Code(s): N17.9 - ACUTE KIDNEY FAILURE, UNSPECIFIED (4) Pleural effusion Code(s): J90 - PLEURAL EFFUSION, NOT ELSEWHERE CLASSIFIED (5) Rapid atrial fibrillation Code(s): I48.91 - UNSPECIFIED ATRIAL FIBRILLATION (6) 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
--- NOTE | 2020-01-26 11:03 | PN ---
Progress Note (short form) - Note Progress Note: s: no chest pain, palps, dizziness, dyspnea Current Medications Albuterol/Ipratropium (Duoneb -) 1 amp NEB RQID [facility] Last Admin: 01/26/20 07:40 Dose: Not Given Documented by: Albuterol/Ipratropium (Duoneb -) 1 amp NEB Q4H PRN PRN Reason: SHORTNESS OF BREATH Allopurinol (Zyloprim -) 300 mg PO DAILY [facility] Last Admin: 01/26/20 10:31 Dose: 300 mg Documented by: Atorvastatin Calcium (Lipitor -) 10 mg PO HS [facility] Last Admin: 01/25/20 21:32 Dose: 10 mg Documented by: Dabigatran (Pradaxa -) 75 mg PO BID [facility] Last Admin: 01/25/20 21:32 Dose: 75 mg Documented by: Furosemide (Lasix -) 40 mg PO DAILY [facility] Last Admin: 01/26/20 10:31 Dose: 40 mg Documented by: Glipizide (Glucotrol Xl -) 5 mg PO DAILY@0700 [facility] Last Admin: 01/26/20 06:14 Dose: 5 mg Documented by: Azithromycin (Zithromax 500mg Ivpb (Pre-Docked)) 500 mg in 250 mls @ 250 mls/hr IVPB DAILY [facility] Last Admin: 01/26/20 10:31 Dose: 250 mls/hr Documented by: Ceftriaxone Sodium 2 gm/ (Dextrose) 100 mls @ 200 mls/hr IVPB DAILY [facility]; Protocol Last Admin: 01/26/20 10:31 Dose: 200 mls/hr Documented by: Insulin Aspart (Novolog Vial Sliding Scale -) 1 vial SQ TIDAC [facility]; Protocol Last Admin: 01/26/20 06:14 Dose: Not Given Documented by: Metoprolol Succinate (Toprol Xl -) 100 mg PO DAILY [facility] Last Admin: 01/26/20 10:31 Dose: 100 mg Documented by: Montelukast Sodium (Singulair -) 10 mg PO [facility] Last Admin: 01/25/20 21:32 Dose: 10 mg Documented by: Ondansetron HCl (Zofran Odt -) 4 mg SL Q8H PRN PRN Reason: NAUSEA Vital Signs Period Temp Pulse Resp BP Sys/Ellis Pulse Ox Last 24 Hr 97.9 F-98.7 F 80-106 20-20 123-157/61-79 91-92 NAD Cardiovascular: Yes: Pulse Irregular Respiratory: Yes: Rhonchi, Other (decreased breath sounds bases) Gastrointestinal: Yes: Soft, Abdomen, Obese Edema: Yes Edema: LLE: 1+, RLE: 1+ Neurological: Yes: Alert, Oriented no jaudnice, diaphoresis not agitated - ....Imaging EKG: Image Reviewed Assessment/Plan echo 01/2020: nl lv/rv, ivonne, mild mr mibi 09/2017: no ischemia ecg: afib, 108, nl qtc, no ischemic changes ct chest: bibasilar pna and bl effs tele: afib, rate ok a/p: 84 m hx copd, htn, hld, afib, dchf here with sob. sob, pna, acute/chronic diastolic chf: -cont abx for pna -has mild pleural effs, likely related to pna -diuresed with lasix to 80 mg IV BID - cont PO lasix - monitor daily weights, Cr -no signs acs htn: -cont home meds hld: -cont statin afib: -cont ac, on Pradaxa -cont toprol for rate control. dc tele
[2020-01-26] MEDS ORDERED: PT OWN MED DRAWER 7, Y5N ONE ×2 (11:27→21:43)
[2020-01-26] MEDS: DABIGATRAN ETEXILATE MESYLATE 75 MG CAPSULE PO SCH ×2 (11:28→22:42)
--- NOTE | 2020-01-26 12:05 | PN ---
Progress Note (short form) - Note Progress Note: Pt states he feels better does not have stridor he ambulated with respiratory therapist-- does not need O2 Vital Signs - 24 hr 01/25/20 01/25/20 01/25/20 16:08 18:00 18:46 Temperature 98.7 F 97.9 F Pulse Rate 106 H 90 80 Respiratory 20 20 Rate Blood Pressure 157/79 132/62 O2 Sat by Pulse 91 L Oximetry (%) 01/25/20 01/26/20 01/26/20 20:00 04:15 06:00 Temperature 98.2 F 98.3 F 97.9 F Pulse Rate 100 H 90 97 H Respiratory 20 20 20 Rate Blood Pressure 126/69 129/61 123/68 O2 Sat by Pulse 92 L Oximetry (%) Current Medications Generic Name Dose Route Start Last Admin Trade Name Freq PRN Reason Stop Dose Admin Albuterol/Ipratropium 1 amp 01/21/20 12:00 01/26/20 07:40 Duoneb - NEB Not Given RQID PEEWEE Albuterol/Ipratropium 1 amp 01/22/20 11:40 Duoneb - NEB Q4H PRN SHORTNESS OF BREATH Allopurinol 300 mg 01/20/20 10:00 01/26/20 10:31 Zyloprim - PO 300 mg DAILY PEEWEE Administration Atorvastatin Calcium 10 mg 01/19/20 22:00 01/25/20 21:32 Lipitor - PO 10 mg HS [facility]EEWEE Administration Dabigatran 75 mg 01/19/20 22:00 01/26/20 11:28 Pradaxa - PO 75 mg BID PEEWEE Administration Furosemide 40 mg 01/26/20 10:00 01/26/20 10:31 Lasix - PO 40 mg DAILY [facility]EE[facility]EE Administration Glipizide 5 mg 01/20/20 07:00 01/26/20 06:14 Glucotrol Xl - PO 5 mg DAILY@0700 [facility] Administration Azithromycin 500 mg in 250 mls @ 250 mls/hr 01/20/20 10:00 01/26/20 10:31 Zithromax 500mg Ivpb (Pre-Docked) IVPB 250 mls/hr DAILY [facility] Administration Ceftriaxone Sodium 2 gm/ 100 mls @ 200 mls/hr 01/20/20 17:15 01/26/20 10:31 Dextrose IVPB 200 mls/hr DAILY [facility]WEE Administration Protocol Insulin Aspart 1 vial 01/19/20 16:30 01/26/20 11:27 Novolog Vial Sliding Scale - SQ Not Given TIDAC [facility] Protocol Metoprolol Succinate 100 mg 01/20/20 10:00 01/26/20 10:31 Toprol Xl - PO 100 mg DAILY [facility]WEE Administration Montelukast Sodium 10 mg 01/19/20 22:00 01/25/20 21:32 Singulair - PO 10 mg HS [facility]EEWEE Administration Ondansetron HCl 4 mg 01/25/20 12:58 Zofran Odt - SL Q8H PRN NAUSEA Laboratory Results - last 24 hr 01/25/20 01/26/20 01/26/20 16:50 05:04 11:25 POC Glucometer 108 147 109 01/20/20 21:30 Sputum - Expectorated Gram Stain - Final 01/20/20 21:30 Sputum - Expectorated Sputum Culture - Preliminary NORMAL RESPIRATORY HERNANDEZ 01/19/20 13:36 Blood - Peripheral Venous Blood Culture - Preliminary NO GROWTH OBTAINED AFTER 48 HOURS, INCUBATION TO CONTINUE FOR 3 DAYS. 01/19/20 13:36 Blood - Peripheral Venous Blood Culture - Preliminary NO GROWTH OBTAINED AFTER 48 HOURS, INCUBATION TO CONTINUE FOR 3 DAYS. 01/20/20 12:45 Urine For Antigen Detection Legionella Antigen - Final 01/20/20 12:45 Urine For Antigen Detection Streptococcus pneumoniae Antigen (M - Final S1 S2 Irregular Lungs ronchi decreased Abd-soft, obese, NT trace edema A/p Assessment/Plan Pneumonia -- iv antibiotics -- -- Influenza screen negative -- CT chest noted -- nebs -- urine antigens negative -- sputum-- normal -- repeat cxr noted Goiter -- tracheal compression -- ENT eval pending -->may do as an outpt -- currently no stridor CHF decompensation -- diastolic -- Echo reviewed -- Cardiology eval noted --on po lasix -- monitor daily weight and I and O -- monitor renal function Rapid Afib -- on Pradaxa -- rate is controlled spoke with daughter Problem List - Problems (1) Rapid atrial fibrillation Code(s): I48.91 - UNSPECIFIED ATRIAL FIBRILLATION (2) Acute CHF Code(s): I50.9 - HEART FAILURE, UNSPECIFIED Qualifiers: Heart failure type: unspecified Qualified Code(s): I50.9 - Heart failure, unspecified (3) Acute exacerbation of chronic obstructive pulmonary disease (COPD) Code(s): J44.1 - CHRONIC OBSTRUCTIVE PULMONARY DISEASE W (ACUTE) EXACERBATION (4) Pleural effusion Code(s): J90 - PLEURAL EFFUSION, NOT ELSEWHERE CLASSIFIED (5) Pneumonia Code(s): J18.9 - PNEUMONIA, UNSPECIFIED ORGANISM Qualifiers: Pneumonia type: due to unspecified organism Laterality: bilateral Lung location: unspecified part of lung Qualified Code(s): J18.9 - Pneumonia, unspecified organism (6) Acute kidney failure Code(s): N17.9 - ACUTE KIDNEY FAILURE, UNSPECIFIED
[2020-01-26] MEDS ORDERED: ALBUTEROL SO4 2.5/IPRATROPIUM 0.5 INH SOL 3 ML VIAL.NEB. NEB PRN (17:29)
[2020-01-26] MEDS ORDERED: ONDANSETRON *ODT* 4 MG TABLET SL PRN (17:29)
--- NOTE | 2020-01-26 20:15 | CON.ENT ---
Consult Consult Specialty:: ENT Referred by:: Dr. 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 while there found to have an enlarged thyroid, seen by an oxyhydrogen welder from [facility] (suspect this was Dr. Glen Valadez) and had a biopsy, told it was benign. ?had medications while in hospital for thyroid, no outpatient thyroid medication ROS pt has a growth of right external ear, saw commissions manager, froze it off, but it has come back and grown more recently, some bleeding noted. 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 Cardio/Vascular: Yes: AFIB, CHF Pulmonary: Yes: COPD, Other (asbestos exposure) Endocrine: Yes: Other (large goiter with tracheal compression) - Alcohol/Substance Use Hx Alcohol Use: No - Smoking History Smoking history: Former smoker Have you smoked in the past 12 months: No If you are a former smoker, when did you quit?: 42 YRS AGO - Social History ADL: Independent History of Recent Travel: No Home Medications - Allergies Allergies/Adverse Reactions: Allergies Allergy/AdvReac Type Severity Reaction Status Date / Time No Known Allergies Allergy Verified 01/19/20 08:28 - Home Medications Home Medications: Ambulatory Orders Allopurinol 300 mg PO DAILY 01/19/20 Amlodipine Bes/Olmesartan Med [Amlodipine-Olmesartan 5-40 mg] 1 each PO 01/19/20 Dabigatran Etexilate Mesylate [Pradaxa -] 75 mg PO BID 01/19/20 Glipizide [Glipizide Xl] 5 mg PO DAILY 01/19/20 Metoprolol Succinate [Toprol Xl] 100 mg PO DAILY 01/19/20 Montelukast Sodium [Singulair] 10 mg PO HS 01/19/20 Pravastatin Sodium [Pravachol (Nf)] 40 mg PO HS 01/19/20 Triamterene/Hydrochlorothiazid [Triamterene-Hctz 37.5-25 mg Cp] 1 each PO DAILY 01/19/20 Physical Exam-ENT Vital Signs: Vital Signs Temperature 97.9 F 01/26/20 18:00 Pulse Rate 96 H 01/26/20 18:00 Respiratory Rate 01/26/20 18:00 Blood Pressure 132/72 01/26/20 18:00 O2 Sat by Pulse Oximetry (%) 92 L 01/25/20 20:00 Constitutional: Yes: Well Nourished, No Distress, Calm Head: Yes: WNL Face: Yes: WNL Eyes: Yes: WNL Nose: Yes: WNL Nasal Passage: Yes: WNL Oral/Pharynx: Yes: Other (dentures, no mucosal lesions seen, tonsils absent, oropharynx clear, voice clear and strong, no breathiness, no stridor or respiratory distress) Outer Ear: Yes: Other (~2.5-3 cm exophytic growth upper pinna along helix, projects outward radially. verrucous appearance, sl dry blood. no obvious cartilage invasion.) Ear Canal: Yes: WNL Neck: Yes: Other (no mass, no) Problem List - Problems (1) Neoplasm of ear Assessment/Plan: right external ear skin neoplasm, benign by history, prior cryotherapy, has now recurred large with some bleeding Recommend: keep outpatient dermatology appointment as scheduled Code(s): D49.2 - NEOPLASM OF UNSP BEHAVIOR OF BONE, SOFT TISSUE, AND SKIN (2) Thyromegaly Assessment/Plan: prior diagnosis ~10 years ago had biopsy, negative presently has large substernal goiter left greater than right, with significant tracheal compression. fortunately pt is improving regarding his breathing. Recommend: continue medical treatment for underlying puylmonary condition TFT's ordered Endocrinology consultation ' possibility of thyroid surgery in future briefly discussed with patient and his family. This would certainly relieve tracheal compression however, would need full consideration of risks and benefits in light of patient's overall medical condition, with decision involving full medical team with patient and his family. Thank you for consultation, Miguel Ceballos MD FACS Code(s): E01.0 - IODINE-DEFICIENCY RELATED DIFFUSE (ENDEMIC) GOITER
[2020-01-26] MEDS: MONTELUKAST NA 10 MG TABLET PO SCH (22:34)
[2020-01-26] MEDS: ATORVASTATIN CA 10 MG TABLET (FP) PO SCH (22:34)
[2020-01-27] MEDS: glipiZIDE-XL 5 MG TAB.ER.24 PO SCH (07:01)
[2020-01-27] MEDS: INSULIN SLIDING SCALE (NOVOLOG) 1 VIAL SQ SCH ×3 (07:06→18:23)
[2020-01-27] MEDS: ALBUTEROL SO4 2.5/IPRATROPIUM 0.5 INH SOL 3 ML VIAL.NEB. NEB SCH ×4 (08:00→23:38)
[2020-01-27] MEDS ORDERED: DEXTROSE 5%-WATER 100 ML IVPB ONE (09:23)
--- NOTE | 2020-01-27 10:11 | PN ---
Progress Note (short form) - Note Progress Note: s: no chest pain, palps, dizziness, dyspnea Current Medications Generic Name Dose Route Start Last Admin Trade Name Freq PRN Reason Stop Dose Admin Albuterol/Ipratropium 1 amp 01/26/20 17:29 Duoneb - NEB Q4H PRN SHORTNESS OF BREATH Albuterol/Ipratropium 1 amp 01/26/20 20:00 01/27/20 08:00 Duoneb - NEB Not Given RQID PEEWEE Allopurinol 300 mg 01/27/20 10:00 Zyloprim - PO DAILY [facility] Atorvastatin Calcium 10 mg 01/26/20 22:00 01/26/20 22:34 Lipitor - PO 10 mg HS PEEWEE Administration Dabigatran 75 mg 01/26/20 22:00 01/26/20 22:42 Pradaxa - PO 75 mg BID PEEWEE Administration Furosemide 40 mg 01/27/20 10:00 Lasix - PO DAILY [facility] Glipizide 5 mg 01/27/20 07:00 01/27/20 07:01 Glucotrol Xl - PO 5 mg DAILY@0700 [facility] Administration Azithromycin 500 mg in 250 mls @ 250 mls/hr 01/27/20 10:00 Zithromax 500mg Ivpb (Pre-Docked) IVPB DAILY [facility] Ceftriaxone Sodium 2 gm/ 100 mls @ 200 mls/hr 01/27/20 10:00 Dextrose IVPB DAILY [facility] Protocol Insulin Aspart 1 vial 01/27/20 07:00 01/27/20 07:06 Novolog Vial Sliding Scale - SQ Not Given TIDAC [facility] Protocol Metoprolol Succinate 100 mg 01/27/20 10:00 Toprol Xl - PO DAILY [facility] Montelukast Sodium 10 mg 01/26/20 22:00 01/26/20 22:34 Singulair - PO 10 mg HS [facility] Administration Ondansetron HCl 4 mg 01/26/20 17:29 Zofran Odt - SL Q8H PRN NAUSEA Vital Signs Period Temp Pulse Resp BP Sys/Ellis Pulse Ox Last 24 Hr 97.5 F-98.2 F 81-98 20-20 119-152/57-81 92 NAD Cardiovascular: Yes: Pulse Irregular Respiratory: Yes: Rhonchi, Other (decreased breath sounds bases) Gastrointestinal: Yes: Soft, Abdomen, Obese Edema:trace le edema bl Neurological: Yes: Alert, Oriented no jaudnice, diaphoresis not agitated CBC, BMP 01/20/20 06:00 01/25/20 06:27 - ....Imaging EKG: Image Reviewed Assessment/Plan echo 01/2020: nl lv/rv, ivonne, mild mr mibi 09/2017: no ischemia ecg: afib, 108, nl qtc, no ischemic changes ct chest: bibasilar pna and bl effs tele: afib, rate ok a/p: 84 m hx copd, htn, hld, afib, dchf here with sob. sob, pna, acute/chronic diastolic chf: -cont abx for pna -has mild pleural effs, likely related to pna -diuresed with iv lasix, now on PO lasix -no signs acs htn: -cont home meds hld: -cont statin afib: -cont ac, on Pradaxa -cont toprol for rate control. dc tele
[2020-01-27] MEDS: DABIGATRAN ETEXILATE MESYLATE 75 MG CAPSULE PO SCH ×2 (10:31→21:31)
[2020-01-27] MEDS: FUROSEMIDE 40 MG TABLET (FP) PO SCH (10:31)
[2020-01-27] MEDS: ALLOPURINOL 300 MG TABLET (FP) PO SCH (10:31)
[2020-01-27] MEDS: CEFTRIAXONE 2 GM in DEXTROSE 5%-WATER 100 ML IVPB SCH (10:33)
[2020-01-27] MEDS: AZITHROMYCIN IVPB 500 MG/250 ML BAG IVPB SCH (10:33)
--- NOTE | 2020-01-27 12:00 | PN ---
Progress Note (short form) - Note Progress Note: Pt states he feels better breathing is better he ambulated with respiratory therapist-- does not need O2 has a productive cough Vital Signs - 24 hr 01/26/20 01/26/20 01/26/20 14:45 18:00 21:00 Temperature 98.1 F 97.9 F Pulse Rate 97 H 96 H Respiratory 20 20 Rate Blood Pressure 119/57 L 132/72 O2 Sat by Pulse 92 L Oximetry (%) 01/26/20 01/27/20 01/27/20 22:00 01:45 06:00 Temperature 97.5 F L 98.2 F 97.6 F Pulse Rate 93 H 98 H 81 Respiratory 20 20 20 Rate Blood Pressure 133/65 132/71 152/81 O2 Sat by Pulse Oximetry (%) 01/27/20 10:00 Temperature 98.8 F Pulse Rate 83 Respiratory 20 Rate Blood Pressure 145/75 O2 Sat by Pulse Oximetry (%) Current Medications Generic Name Dose Route Start Last Admin Trade Name Freq PRN Reason Stop Dose Admin Albuterol/Ipratropium 1 amp 01/26/20 17:29 Duoneb - NEB Q4H PRN SHORTNESS OF BREATH Albuterol/Ipratropium 1 amp 01/26/20 20:00 01/27/20 11:50 Duoneb - NEB 1 amp RQID PEEWEE Administration Allopurinol 300 mg 01/27/20 10:00 01/27/20 10:31 Zyloprim - PO 300 mg DAILY [facility] Administration Atorvastatin Calcium 10 mg 01/26/20 22:00 01/26/20 22:34 Lipitor - PO 10 mg HS PEEWEE Administration Dabigatran 75 mg 01/26/20 22:00 01/27/20 10:31 Pradaxa - PO 75 mg BID PEEWEE Administration Furosemide 40 mg 01/27/20 10:00 01/27/20 10:31 Lasix - PO 40 mg DAILY [facility] Administration Glipizide 5 mg 01/27/20 07:00 01/27/20 07:01 Glucotrol Xl - PO 5 mg DAILY@0700 PEE[facility]EE Administration Azithromycin 500 mg in 250 mls @ 250 mls/hr 01/27/20 10:00 01/27/20 10:33 Zithromax 500mg Ivpb (Pre-Docked) IVPB 250 mls/hr DAILY [facility] Administration Ceftriaxone Sodium 2 gm/ 100 mls @ 200 mls/hr 01/27/20 10:00 01/27/20 10:33 Dextrose IVPB 200 mls/hr DAILY [facility]EEWEE Administration Protocol Insulin Aspart 1 vial 01/27/20 07:00 01/27/20 07:06 Novolog Vial Sliding Scale - SQ Not Given [facility] Protocol Metoprolol Succinate 100 mg 01/27/20 10:00 01/27/20 10:31 Toprol Xl - PO 100 mg DAILY [facility] Administration Montelukast Sodium 10 mg 01/26/20 22:00 01/26/20 22:34 Singulair - PO 10 mg HS PEEWEE Administration Ondansetron HCl 4 mg 01/26/20 17:29 Zofran Odt - SL Q8H PRN NAUSEA Laboratory Results - last 24 hr 01/26/20 01/26/20 01/27/20 17:10 23:28 07:04 POC Glucometer 115 92 110 TSH Thyroxine (T4) 01/27/20 07:35 POC Glucometer TSH 0.25 L D Thyroxine (T4) 8.3 01/20/20 21:30 Sputum - Expectorated Gram Stain - Final 01/20/20 21:30 Sputum - Expectorated Sputum Culture - Preliminary NORMAL RESPIRATORY HERNANDEZ 01/19/20 13:36 Blood - Peripheral Venous Blood Culture - Preliminary NO GROWTH OBTAINED AFTER 48 HOURS, INCUBATION TO CONTINUE FOR 3 DAYS. 01/19/20 13:36 Blood - Peripheral Venous Blood Culture - Preliminary NO GROWTH OBTAINED AFTER 48 HOURS, INCUBATION TO CONTINUE FOR 3 DAYS. 01/20/20 12:45 Urine For Antigen Detection Legionella Antigen - Final 01/20/20 12:45 Urine For Antigen Detection Streptococcus pneumoniae Antigen (M - Final S1 S2 Irregular Lungs ronchi decreased Abd-soft, obese, NT trace edema A/p Assessment/Plan Pneumonia -- iv antibiotics -- -- Influenza screen negative -- CT chest noted -- nebs -- urine antigens negative -- sputum-- normal -- repeat cxr noted Goiter -- tracheal compression -- ENT eval noted-- will need surgery in future -- TFT noted-- free T 4 pending --clinically improving -- currently no stridor -- dc planning Thyromegaly -- with tracheal compression -- his breathing is improved -- does not need O2 -- will need follow up with Endocrinology, Cardiology, Pulmonary as out patient prior to surgery CHF decompensation -- diastolic -- Echo reviewed -- Cardiology eval noted --on po lasix Rapid Afib -- on Pradaxa -- rate is controlled Problem List - Problems (1) Rapid atrial fibrillation Code(s): I48.91 - UNSPECIFIED ATRIAL FIBRILLATION (2) Acute CHF Code(s): I50.9 - HEART FAILURE, UNSPECIFIED Qualifiers: Heart failure type: unspecified Qualified Code(s): I50.9 - Heart failure, unspecified (3) Acute exacerbation of chronic obstructive pulmonary disease (COPD) Code(s): J44.1 - CHRONIC OBSTRUCTIVE PULMONARY DISEASE W (ACUTE) EXACERBATION (4) Pleural effusion Code(s): J90 - PLEURAL EFFUSION, NOT ELSEWHERE CLASSIFIED (5) Pneumonia Code(s): J18.9 - PNEUMONIA, UNSPECIFIED ORGANISM Qualifiers: Pneumonia type: due to unspecified organism Laterality: bilateral Lung location: unspecified part of lung Qualified Code(s): J18.9 - Pneumonia, unspecified organism (6) Acute kidney failure Code(s): N17.9 - ACUTE KIDNEY FAILURE, UNSPECIFIED
--- NOTE | 2020-01-27 12:16 | PN ---
Progress Note (short form) - Note Progress Note: PULMONARY States breathing is improving, coughing less. No chest pain. Vital Signs Period Temp Pulse Resp BP Sys/Ellis Pulse Ox Last 24 Hr 97.5 F-98.8 F 81-98 20-20 119-152/57-81 92 Gen: NAD at rest Heart: RRR Lung: basilar rales Abd: soft, nontender Ext: + edema CBC, BMP 01/20/20 06:00 01/25/20 06:27 Active Medications Albuterol/Ipratropium (Duoneb -) 1 amp NEB Q4H PRN PRN Reason: SHORTNESS OF BREATH Albuterol/Ipratropium (Duoneb -) 1 amp NEB RQID [facility] Last Admin: 01/27/20 11:50 Dose: 1 amp Documented by: Allopurinol (Zyloprim -) 300 mg PO DAILY [facility] Last Admin: 01/27/20 10:31 Dose: 300 mg Documented by: Atorvastatin Calcium (Lipitor -) 10 mg PO HS [facility] Last Admin: 01/26/20 22:34 Dose: 10 mg Documented by: Dabigatran (Pradaxa -) 75 mg PO BID [facility] Last Admin: 01/27/20 10:31 Dose: 75 mg Documented by: Furosemide (Lasix -) 40 mg PO DAILY [facility] Last Admin: 01/27/20 10:31 Dose: 40 mg Documented by: Glipizide (Glucotrol Xl -) 5 mg PO DAILY@0700 [facility] Last Admin: 01/27/20 07:01 Dose: 5 mg Documented by: Azithromycin (Zithromax 500mg Ivpb (Pre-Docked)) 500 mg in 250 mls @ 250 mls/hr IVPB DAILY [facility] Last Admin: 01/27/20 10:33 Dose: 250 mls/hr Documented by: Ceftriaxone Sodium 2 gm/ (Dextrose) 100 mls @ 200 mls/hr IVPB DAILY [facility]; Protocol Last Admin: 01/27/20 10:33 Dose: 200 mls/hr Documented by: Insulin Aspart (Novolog Vial Sliding Scale -) 1 vial SQ TIDAC [facility]; Protocol Last Admin: 01/27/20 07:06 Dose: Not Given Documented by: Metoprolol Succinate (Toprol Xl -) 100 mg PO DAILY [facility] Last Admin: 01/27/20 10:31 Dose: 100 mg Documented by: Montelukast Sodium (Singulair -) 10 mg PO HS [facility] Last Admin: 01/26/20 22:34 Dose: 10 mg Documented by: Ondansetron HCl (Zofran Odt -) 4 mg SL Q8H PRN PRN Reason: NAUSEA A/P Acute on Chronic Diastolic Heart Failure Atrial Fibrillation COPD r/o Pneumonia HTN Hyperlipidemia Goiter - continue lasix - monitor urine output, creatinine - on empiric antibiotics - f/u cultures - rate control - continue anticoagulation
[2020-01-27] MEDS ORDERED: PT OWN MED DRAWER 7, Y5N ONE (21:25)
[2020-01-27] MEDS: ATORVASTATIN CA 10 MG TABLET (FP) PO SCH (21:30)
[2020-01-27] MEDS: MONTELUKAST NA 10 MG TABLET PO SCH (21:30)
[2020-01-28] MEDS ORDERED: PT OWN MED DRAWER 7, Y5N ONE ×2 (05:40→06:26)
[2020-01-28] MEDS: INSULIN SLIDING SCALE (NOVOLOG) 1 VIAL SQ SCH ×2 (06:00→12:19)
[2020-01-28 06:13] VITALS: PULSE 88
[2020-01-28] MEDS: glipiZIDE-XL 5 MG TAB.ER.24 PO SCH (06:27)
[2020-01-28] MEDS: ALBUTEROL SO4 2.5/IPRATROPIUM 0.5 INH SOL 3 ML VIAL.NEB. NEB SCH ×2 (08:00→12:00)
[2020-01-28] MEDS: CEFTRIAXONE 2 GM in DEXTROSE 5%-WATER 100 ML IVPB SCH (09:20)
[2020-01-28] MEDS: AZITHROMYCIN IVPB 500 MG/250 ML BAG IVPB SCH (09:21)
[2020-01-28] MEDS: ALLOPURINOL 300 MG TABLET (FP) PO SCH (09:28)
[2020-01-28] MEDS: FUROSEMIDE 40 MG TABLET (FP) PO SCH (09:28)
[2020-01-28] MEDS: DABIGATRAN ETEXILATE MESYLATE 75 MG CAPSULE PO SCH (09:29)
[2020-01-28 09:32] VITALS: BP 147/65; TEMP 98.2
--- NOTE | 2020-01-28 11:09 | DS ---
Physical Examination Vital Signs: Vital Signs Temperature 98.2 F 01/28/20 09:31 Pulse Rate 88 01/28/20 09:31 Respiratory Rate 18 01/28/20 09:31 Blood Pressure 147/65 01/28/20 09:31 O2 Sat by Pulse Oximetry (%) 94 L 01/28/20 09:00 Findings/Remarks: pt seen/ examined chart reviewed feels much better all f/u noted Constitutional: Yes: No Distress, Calm Eyes: Yes: Conjunctiva Clear Neck: Yes: Supple Cardiovascular: Yes: Pulse Irregular. No: Regular Rate and Rhythm Respiratory: Yes: Diminished Gastrointestinal: Yes: Abdomen, Obese Edema: LLE: Trace, RLE: Trace Neurological: Yes: Alert Psychiatric: Yes: Alert Labs: CBC, BMP 01/20/20 06:00 01/25/20 06:27 Discharge Summary Problems reviewed: Yes Reason For Visit: PNEUMONIA Current Active Problems Acute CHF (Acute) Acute exacerbation of chronic obstructive pulmonary disease (COPD) (Acute) Acute kidney failure (Acute) Neoplasm of ear (Acute) Pleural effusion (Acute) Pneumonia (Acute) Rapid atrial fibrillation (Acute) Stridor (Acute) Thyromegaly (Acute) Hospital Course: he patient is an 84 year old male, with a significant PMH of COPD, CHF, prior asbestos exposure, who presents to the ED for evaluation of shortness of breath for 3 days. Patient complains of progressively worsening shortness of breath. Pt diagnosed with chf exac/ Pneumonia as well as Enlarged thyroid Treated with diuretics/ abx Pulmonary/ cardiology/ followed ent consult also taken- out pt surgery recommended for thyroid Echo = also done pt stable for d/c now d/w pt/ RN Meds reconcilled meds prescribed as needed pt to follow with his pmd in one week pt in agreement d/c time-- appreox 45 min in examining/ documenting / coordationg care/ Condition: Fair - Instructions Referrals: Will Lackey MD [Primary Care Provider] - Disposition: HOME - Home Medications Comprehensive Discharge Medication List: Ambulatory Orders Allopurinol 300 mg PO DAILY 01/19/20 Dabigatran Etexilate Mesylate [Pradaxa -] 75 mg PO BID 01/19/20 Glipizide [Glipizide Xl] 5 mg PO DAILY 01/19/20 Metoprolol Succinate [Toprol Xl] 100 mg PO DAILY 01/19/20 Montelukast Sodium [Singulair] 10 mg PO HS 01/19/20 Pravastatin Sodium [Pravachol -] 40 mg PO HS 01/19/20 Albuterol 2.5/Ipratropium 0.5 [Duoneb -] 1 amp NEB RQID amp 01/28/20 Amox-Tr/K Cl [Augmentin 875-125mg Tablet -] 1 tab PO BID@0800,1730 5 Days #10 tablet 01/28/20 Amoxicillin/Potassium Clav [Augmentin 875-125 Tablet] 1 each PO BID #10 tablet 01/28/20 Furosemide [Lasix -] 40 mg PO DAILY 30 Days #30 tablet 01/28/20 Furosemide [Lasix] 40 mg PO DAILY #30 tablet 01/28/20
--- NOTE | 2020-01-28 13:26 | PN ---
Progress Note, Physician History of Present Illness: pulmonary alert,comfortable,,no distress,-sob,-cough - Current Medication List Current Medications: Active Medications Albuterol/Ipratropium (Duoneb -) 1 amp NEB Q4H PRN PRN Reason: SHORTNESS OF BREATH Albuterol/Ipratropium (Duoneb -) 1 amp NEB RQID [facility] Last Admin: 01/28/20 12:00 Dose: 1 amp Documented by: Allopurinol (Zyloprim -) 300 mg PO DAILY [facility] Last Admin: 01/28/20 09:28 Dose: 300 mg Documented by: Amoxicillin/Clavulanate Potassium (Augmentin - 875mg Tablet) 1 tab PO BID@0800,1730 [facility] Atorvastatin Calcium (Lipitor -) 10 mg PO [facility] Last Admin: 01/27/20 21:30 Dose: 10 mg Documented by: Dabigatran (Pradaxa -) 75 mg PO BID [facility] Last Admin: 01/28/20 09:29 Dose: 75 mg Documented by: Furosemide (Lasix -) 40 mg PO DAILY [facility] Last Admin: 01/28/20 09:28 Dose: 40 mg Documented by: Glipizide (Glucotrol Xl -) 5 mg PO DAILY@0700 [facility] Last Admin: 01/28/20 06:27 Dose: 5 mg Documented by: Insulin Aspart (Novolog Vial Sliding Scale -) 1 vial SQ TIDAC [facility]; Protocol Last Admin: 01/28/20 12:19 Dose: Not Given Documented by: Metoprolol Succinate (Toprol Xl -) 100 mg PO DAILY [facility] Last Admin: 01/28/20 09:28 Dose: 100 mg Documented by: Montelukast Sodium (Singulair -) 10 mg PO [facility] Last Admin: 01/27/20 21:30 Dose: 10 mg Documented by: Ondansetron HCl (Zofran Odt -) 4 mg SL Q8H PRN PRN Reason: NAUSEA - Objective Vital Signs: Vital Signs Temperature 98.2 F 01/28/20 09:31 Pulse Rate 88 01/28/20 09:31 Respiratory Rate 18 01/28/20 09:31 Blood Pressure 147/65 01/28/20 09:31 O2 Sat by Pulse Oximetry (%) 94 L 01/28/20 09:00 Constitutional: Yes: Well Nourished, Calm Eyes: Yes: WNL HENT: Yes: WNL Neck: Yes: WNL Cardiovascular: Yes: Pulse Irregular, S1, S2 Respiratory: Yes: Rales (few bibasilar rales) Gastrointestinal: Yes: Normal Bowel Sounds, Soft Extremities: Yes: WNL Edema: No Labs: CBC, BMP Problem List - Problems (1) Acute CHF Code(s): I50.9 - HEART FAILURE, UNSPECIFIED Qualifiers: Heart failure type: unspecified Qualified Code(s): I50.9 - Heart failure, unspecified (2) Acute exacerbation of chronic obstructive pulmonary disease (COPD) Code(s): J44.1 - CHRONIC OBSTRUCTIVE PULMONARY DISEASE W (ACUTE) EXACERBATION (3) Acute kidney failure Code(s): N17.9 - ACUTE KIDNEY FAILURE, UNSPECIFIED (4) Pleural effusion Code(s): J90 - PLEURAL EFFUSION, NOT ELSEWHERE CLASSIFIED (5) Rapid atrial fibrillation Code(s): I48.91 - UNSPECIFIED ATRIAL FIBRILLATION (6) 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 Assessment/Plan Problem List - Problems (1) Acute CHF Code(s): I50.9 - HEART FAILURE, UNSPECIFIED Qualifiers: Heart failure type: unspecified Qualified Code(s): I50.9 - Heart failure, unspecified (2) Acute exacerbation of chronic obstructive pulmonary disease (COPD) Code(s): J44.1 - CHRONIC OBSTRUCTIVE PULMONARY DISEASE W (ACUTE) EXACERBATION (3) Acute kidney failure Code(s): N17.9 - ACUTE KIDNEY FAILURE, UNSPECIFIED (4) Pleural effusion Code(s): J90 - PLEURAL EFFUSION, NOT ELSEWHERE CLASSIFIED (5) Rapid atrial fibrillation Code(s): I48.91 - UNSPECIFIED ATRIAL FIBRILLATION (6) 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 Assessment/Plan A/P Acute on Chronic Diastolic Heart Failure improved Atrial Fibrillation COPD r/o Pneumonia HTN Hyperlipidemia Goiter - lasix po - augmentin - anticoagulation DR HSU
--- NOTE | 2020-01-28 14:03 | PN ---
Progress Note (short form) - Note Progress Note: s: no chest pain, palps, dizziness, dyspnea Current Medications Generic Name Dose Route Start Last Admin Trade Name Freq PRN Reason Stop Dose Admin Albuterol/Ipratropium 1 amp 01/26/20 17:29 Duoneb - NEB Q4H PRN SHORTNESS OF BREATH Albuterol/Ipratropium 1 amp 01/26/20 20:00 01/28/20 12:00 Duoneb - NEB 1 amp RQID PEEWEE Administration Allopurinol 300 mg 01/27/20 10:00 01/28/20 09:28 Zyloprim - PO 300 mg DAILY [facility] Administration Amoxicillin/Clavulanate Potassium 1 tab 01/28/20 17:30 Augmentin - 875mg Tablet PO BID@0800,1730 [facility] Atorvastatin Calcium 10 mg 01/26/20 22:00 01/27/20 21:30 Lipitor - PO 10 mg HS [facility] Administration Dabigatran 75 mg 01/26/20 22:00 01/28/20 09:29 Pradaxa - PO 75 mg BID [facility] Administration Furosemide 40 mg 01/27/20 10:00 01/28/20 09:28 Lasix - PO 40 mg DAILY [facility] Administration Glipizide 5 mg 01/27/20 07:00 01/28/20 06:27 Glucotrol Xl - PO 5 mg DAILY@0700 [facility] Administration Insulin Aspart 1 vial 01/27/20 07:00 01/28/20 12:19 Novolog Vial Sliding Scale - SQ Not Given TIDAC [facility] Protocol Metoprolol Succinate 100 mg 01/27/20 10:00 01/28/20 09:28 Toprol Xl - PO 100 mg DAILY [facility] Administration Montelukast Sodium 10 mg 01/26/20 22:00 01/27/20 21:30 Singulair - PO 10 mg HS [facility] Administration Ondansetron HCl 4 mg 01/26/20 17:29 Zofran Odt - SL Q8H PRN NAUSEA Vital Signs Period Temp Pulse Resp BP Sys/Ellis Pulse Ox Last 24 Hr 97.7 F-98.7 F 82-95 18-20 121-158/61-73 94-96 NAD Cardiovascular: Yes: Pulse Irregular Respiratory: Yes: Rhonchi, Other (decreased breath sounds bases) Gastrointestinal: Yes: Soft, Abdomen, Obese Edema:trace le edema bl Neurological: Yes: Alert, Oriented no jaudnice, diaphoresis not agitated CBC, BMP 01/20/20 06:00 01/25/20 06:27 - ....Imaging EKG: Image Reviewed Assessment/Plan echo 01/2020: nl lv/rv, ivonne, mild mr mibi 09/2017: no ischemia ecg: afib, 108, nl qtc, no ischemic changes ct chest: bibasilar pna and bl effs a/p: 84 m hx copd, htn, hld, afib, dchf here with sob. sob, pna, acute/chronic diastolic chf: -cont abx for pna -had mild pleural effs, likely related to pna -diuresed with iv lasix, now on PO lasix -no signs acs htn: -cont home meds hld: -cont statin afib: -cont ac, on Pradaxa -cont toprol for rate control. cardiac camacho stable for dc with outpt f/u
[2020-01-28] MEDS ORDERED: AMOX TR/POT CLAV 875MG/125MG TABLETS (FP) PO SCH (17:30)
== END 2020-01-28 15:39 | disposition home or self-care (01) | DRG 291 ==
LOC: JER 08:25 → JERBED 14:29 → J4W 22:29 → J5S 01-26 17:16
PROVIDERS: ADMIT Internal Medicine; ATTEND Internal Medicine
DX: I11.0 Hypertensive heart disease with heart failure (principal); J18.9 Pneumonia, unspecified organism; J44.1 Chronic obstructive pulmonary disease with (acute) exacerbation; N17.9 Acute kidney failure, unspecified; J90 Pleural effusion, not elsewhere classified; J98.11 Atelectasis; I50.33 Acute on chronic diastolic (congestive) heart failure; I48.91 Unspecified atrial fibrillation; R06.1 Stridor; E01.0 Iodine-deficiency related diffuse (endemic) goiter; E66.9 Obesity, unspecified; Z68.31 Body mass index [BMI] 31.0-31.9, adult; E04.9 Nontoxic goiter, unspecified; D23.21 Other benign neoplasm of skin of right ear and external auricular canal
CPT/HCPCS: 36415; 36600; 71045-TC-FY; 71250-TC; 80048; 80053; 80162; 82375; 82550; 82803; 82962; 83050; 83880; 84436; 84443; 84481; 84484; 85025; 85610; 87040; 87070; 87205; 87804; 87899; 93005; 93010; 93306-TC; 94640; 94761; 97116-GP; 97161-GP; 99285-25